=== PATIENT | female | born 1985 | race Hispanic/Latino ===

== ENCOUNTER 2016-10-12 13:15 | Emergency (ER) | payer MEDICAID ==
[2016-10-12 13:15] VITALS: BMI 32.2
[2016-10-12] MEDS ORDERED: Sodium Chloride 0.9% 1,000 ML IV ONE (15:37)
[2016-10-12] MEDS ORDERED: Belladonna-Phenobarbital PO STA (15:37)
[2016-10-12 15:49] LABS: RBC URINE 7 /hpf (0-3); URINE BACTERIA OCC (<OCC); URINE BILIRUBIN NEGATIVE (NEGATIVE); URINE COLOR Yellow (YELLOW); URINE GLUCOSE (UA) 3+ mg/dL (Normal); URINE KETONE 2+ mg/dL (NEGATIVE); URINE LEUKOCYTE ESTERASE NEG Leu/uL (Negative); URINE PROTEIN 2+ mg/dL (NEGATIVE); URINE UROBILINOGEN NORMAL mg/dL (0.2-1.0); WBC URINE 5 /hpf (0-5)
[2016-10-12 15:51] LABS: URINE BLOOD TRACE (NEGATIVE)
[2016-10-12 16:05] LABS: BASO # 0.1 K/uL (0.0-0.2); BASO % 0.4 % (0.0-2.0); EOS # 0.1 K/uL (0.0-0.7); EOS % 0.3 % (0.0-4.0); HEMATOCRIT 47.9 % (34.0-47.0); LYMPH # 1.9 K/uL (1.0-4.3); LYMPH % 10.7 % (20.0-40.0); MEAN CELL VOLUME 89.6 fL (81.0-99.0); MEAN CORPUSCULAR HEMOGLOBIN 30.1 pg (27.0-31.0); MEAN CORPUSCULAR HGB CONC 33.6 g/dL (33.0-37.0); MEAN PLATELET VOLUME 9.8 fL (7.2-11.7); MONO # 0.9 K/uL (0.0-0.8); MONO % 4.9 % (0.0-10.0); NRBC % 0.1 % (0.0-2.0); RED CELL DISTRIBUTION WIDTH 12.4 % (11.5-14.5); WHITE BLOOD COUNT 17.6 K/uL (4.8-10.8)
--- NOTE | 2016-10-12 16:06 | RAD ---
HISTORY: Cough COMPARISON: Chest x-ray performed 04/13/16 TECHNIQUE: Chest, one view. FINDINGS: Examination limited by habitus. LUNGS: No focal consolidation. Please note that chest x-ray has limited sensitivity for the detection of pulmonary masses. PLEURA: No significant pleural effusion identified. No definite pneumothorax . CARDIOVASCULAR: The cardiomediastinal silhouette appears within normal limits of size. OSSEOUS STRUCTURES: No acute osseous abnormality identified. VISUALIZED UPPER ABDOMEN: Unremarkable. OTHER FINDINGS: None. IMPRESSION: No focal consolidation, significant pleural effusion, or definite pneumothorax identified.
[2016-10-12 16:10] LABS: CHLORIDE 94 mmol/L (98-107); SODIUM 139 mmol/L (132-148)
[2016-10-12 16:11] LABS: POTASSIUM 3.8 mmol/L (3.6-5.2)
[2016-10-12 16:12] LABS: GFR AFRICAN-AMERICAN > 60
[2016-10-12 16:13] LABS: ALB/GLOB RATIO 1.4 (1.0-2.1); ALKALINE PHOSPHATASE 137 U/L (38-126); ALT/SGPT 39 U/L (9-52); AST/SGOT 25 U/L (14-36); BILIRUBIN,TOTAL 0.9 mg/dL (0.2-1.3); BLOOD UREA NITROGEN 9 mg/dL (7-17); CALCIUM 9.6 mg/dl (8.6-10.4); CARBON DIOXIDE 26 mmol/L (22-30); GLUCOSE,RANDOM 278 mg/dL (65-105); TOTAL PROTEIN 8.2 g/dL (6.3-8.3)
[2016-10-12 16:14] LABS: ALCOHOL SERUM < 10 mg/dl (0-10)
[2016-10-12] MEDS ORDERED: Sodium Chloride 0.9% 1,000 ML ONE (17:03)
[2016-10-12] MEDS ORDERED: Belladonna-Phenobarbital ONE (17:03)
--- NOTE | 2016-10-12 18:05 | C.PDOC ---
History Of Present Illness Pt developed flu-like symptoms after stopping her opiate pain pills. Time Seen by Provider: 10/12/16 15:22 Chief Complaint (Nursing): Flu-like Symptoms History Per: Patient Onset/Duration Of Symptoms: Days (2) Current Symptoms Are (Timing): Still Present Associated Symptoms: Cough, Myalgias, Nasal Congestion, Nausea, Vomiting, Diarrhea Severity: Moderate Additional History Per: Prior Records Past Medical History Reviewed: Historical Data, Nursing Documentation, Vital Signs Vital Signs: Last Vital Signs Temp 98.2 F 10/12/16 14:36 Pulse 110 H 10/12/16 14:36 Resp 20 10/12/16 14:36 BP 145/84 10/12/16 14:36 Pulse Ox 99 10/12/16 14:36 - Medical History PMH: Anxiety, Back Problems, Depression, Diabetes, Gastritis, Gastrointestinal Ulcer, Hiatal Hernia, HTN, Kidney Stones Surgical History: - [facility] Procedures INDIVID PSYCHOTHERAP NEC (06/23/14) INFLUENZA VACCINATION (07/23/14) INJECT/INFUSE NEC (07/29/13) NEBULIZER THERAPY (07/29/13) OTHER GROUP THERAPY (06/23/14) Family History: States: Unknown Family Hx - Social History Hx Tobacco Use: No Hx Alcohol Use: No (DENIED) Hx Substance Use: No (DENIED) - Immunization History Hx Tetanus Toxoid Vaccination: No Hx Influenza Vaccination: No Hx Pneumococcal Vaccination: No Review Of Systems Except As Marked, All Systems Reviewed And Found Negative. Constitutional: Positive for: Malaise Cardiovascular: Negative for: Chest Pain Respiratory: Positive for: Cough. Negative for: Shortness of Breath, Hemoptysis Gastrointestinal: Positive for: Nausea, Vomiting, Abdominal Pain, Diarrhea Genitourinary: Negative for: Dysuria Musculoskeletal: Negative for: Neck Pain Skin: Negative for: Rash Neurological: Negative for: Weakness, Numbness, Seizures, Altered Mental Status Psych: Negative for: Psychosis, Suicidal ideation Physical Exam - Physical Exam Appears: Non-toxic, No Acute Distress Skin: Normal Color, Warm, Dry, No Rash Head: Atraumatic, Normacephalic Eye(s): bilateral: PERRL, EOMI Oral Mucosa: Moist Neck: Normal ROM, Supple Cardiovascular: Rhythm Regular Respiratory: Normal Breath Sounds, No Accessory Muscle Use Gastrointestinal/Abdominal: Soft, No Tenderness Back: No CVA Tenderness Extremity: Normal ROM Neurological/Psych: Oriented x3, Normal Motor, Normal Sensation ED Course And Treatment - Laboratory Results Result Diagrams: 10/12/16 16:02 10/12/16 16:02 Urine POC: Negative O2 Sat by Pulse Oximetry: 99 Pulse Ox Interpretation: Normal - Radiology CXR: Viewed By Me, Read By Radiologist CXR Interpretation: Yes: No Acute Disease Reassessment Condition: Improved Progress - Interventions Interventions:: Observation, Intravenous fluid - Medications Administered Intravenous: Antiemetic, H-2 elia, NSAID - Data Reviewed Data Reviewed: Lab, Diagnostic imaging, Old records - Patient Status Patient status: Mostly improved - Continuity of Care Discussed patient case with:: Patient, ED Nurse - Patient Plan Patient Plan: Discharge, F/U with PCP Disposition Counseled Patient/Family Regarding: Studies Performed, Diagnosis, Need For Followup, Rx Given - Disposition Referrals: Wesley Peterson MD [Medical Doctor] - Disposition: HOME/ ROUTINE Disposition Time: 18:05 Condition: IMPROVED Additional Instructions: Drink plenty of fluids. Follow up with your doctor. Return to the ER if you develop fever, not tolerating fluids, worsening of symptoms or if have any other concerns. Prescriptions: Loperamide [Imodium] 2 mg PO QID PRN #12 cap PRN Reason: Diarrhea Metoclopramide [Reglan] 5 mg PO TID PRN #15 tab PRN Reason: Nausea/Vomiting Instructions: Opioid Withdrawal (ED) Print Language: [place] - Clinical Impression Clinical Impression: Opioid withdrawal
[2016-10-12 19:08] VITALS: BP 121/84; PULSE 99; RESP 18; TEMP 98.6; O2SAT 96
== END 2016-10-12 19:08 | disposition home or self-care (01) ==
LOC: C.ER 13:15
DX: F11.23 Opioid dependence with withdrawal (principal)
CPT/HCPCS: 71010; 80053; 80178; 80320; 80324; 80345; 80346; 80349; 80353; 80358; 80361; 81001; 83690; 83992; 84703; 85025; 96361; 96374; 96375; 99285; J1885; J2405; J7040

== ENCOUNTER 2016-12-13 15:32 | Emergency (ER) | payer MEDICAID ==
[2016-12-13 15:33] VITALS: BMI 32.2
[2016-12-13 15:51] VITALS: RESP 18; TEMP 97.9
--- NOTE | 2016-12-13 16:05 | C.PDOC ---
History Of Present Illness 31 y/o female pmhx diabetes, IVDA presents to the ED with complains of intermittent bilateral leg tingling for the past 6 months, worsening over the past week. Pt also reports coccygeal pain x3 days. Pt denies trauma, fever, chills, abdominal pain, vaginal bleeding or discharge or any other complaints. Time Seen by Provider: 12/13/16 15:57 Chief Complaint (Nursing): Back Pain History Per: Patient History/Exam Limitations: no limitations Onset/Duration Of Symptoms: Days Current Symptoms Are (Timing): Worse Severity: Moderate Associated Symptoms: None Recent travel outside of the [place]: No Past Medical History Reviewed: Historical Data, Nursing Documentation, Vital Signs Vital Signs: Last Vital Signs Temp 97.9 F 12/13/16 15:47 Pulse 72 12/13/16 17:56 Resp 18 12/13/16 17:56 BP 138/79 12/13/16 17:56 Pulse Ox 98 12/13/16 17:56 - Medical History PMH: Anxiety (drug induced), Back Problems, Depression (drug induced), Diabetes , Gastritis, Gastrointestinal Ulcer, Hiatal Hernia, HTN, Kidney Stones Surgical History: - [facility] Procedures INDIVID PSYCHOTHERAP NEC (06/23/14) INFLUENZA VACCINATION (07/23/14) INJECT/INFUSE NEC (07/29/13) NEBULIZER THERAPY (07/29/13) OTHER GROUP THERAPY (06/23/14) Family History: States: Unknown Family Hx - Social History Hx Tobacco Use: No Hx Alcohol Use: No (DENIED) Hx Substance Use: No (DENIED) - Immunization History Hx Tetanus Toxoid Vaccination: No Hx Influenza Vaccination: No Hx Pneumococcal Vaccination: No Review Of Systems Except As Marked, All Systems Reviewed And Found Negative. Constitutional: Negative for: Fever, Chills Gastrointestinal: Negative for: Abdominal Pain Genitourinary: Negative for: Vaginal Discharge, Vaginal Bleeding Musculoskeletal: Positive for: Other (bilateral leg tingling. coccygeal pain) Neurological: Negative for: Weakness Physical Exam - Physical Exam Appears: Non-toxic, No Acute Distress Skin: Warm, Dry, No Rash Head: Atraumatic, Normacephalic Neck: Normal, Normal ROM, Supple Chest: Symmetrical Cardiovascular: Rhythm Regular, No Murmur Respiratory: Normal Breath Sounds, No Rales, No Rhonchi, No Wheezing Gastrointestinal/Abdominal: Normal Exam, Soft, No Tenderness Back: No Straight Leg Raising, Other (tenderness to tip of coccyx, otherwise no vertebral tenderness) Extremity: Normal ROM Extremity: Bilateral: Atraumatic Pulses: Left Dorsalis Pedis: Normal, Right Dorsalis Pedis: Normal Neurological/Psych: Oriented x3, Normal Speech, Normal Motor, Normal Sensation Gait: Steady ED Course And Treatment O2 Sat by Pulse Oximetry: 97 (room air) Pulse Ox Interpretation: Normal Progress Note: On reevaluation, pt feeling better after given toradol. Medical Decision Making Medical Decision Making: pt feeling much better. will d/c home,. with pmd f/u Disposition Counseled Patient/Family Regarding: Diagnosis, Need For Followup, Rx Given - Disposition Disposition: HOME/ ROUTINE Disposition Time: 17:46 Condition: IMPROVED Additional Instructions: Follow up with your pmd in 1-2 days or in clinic. Take ibupforen for pain if needed. Return to ER for any worsening symptoms, increased pain or fgever. . Prescriptions: Ibuprofen [Motrin] 600 mg PO TID #30 tab Forms: General Discharge Instructions - Clinical Impression Clinical Impression: Low back pain - PA / [employer] / Resident Statement MD/DO has reviewed & agrees with the documentation as recorded. - Scribe Statement The provider has reviewed the documentation as recorded by the David Paris All medical record entries made by the Rodolfoibarminda were at my direction and personally dictated by me. I have reviewed the chart and agree that the record accurately reflects my personal performance of the history, physical exam, medical decision making, and the department course for this patient. I have also personally directed, reviewed, and agree with the discharge instructions and disposition.
[2016-12-13 17:20] LABS: RBC URINE 2 /hpf (0-3); URINE BACTERIA OCC (<OCC); URINE BILIRUBIN NEGATIVE (NEGATIVE); URINE BLOOD 1+ (NEGATIVE); URINE COLOR Yellow (YELLOW); URINE GLUCOSE (UA) NORMAL (Normal); URINE KETONE NEGATIVE (NEGATIVE); URINE LEUKOCYTE ESTERASE NEG Leu/uL (Negative); URINE PROTEIN 1+ mg/dL (NEGATIVE); WBC URINE 3 /hpf (0-5)
--- NOTE | 2016-12-13 17:39 | RAD ---
PROCEDURE: Radiographs of the Sacrum and Coccyx HISTORY: coccygeal tendernessm no trauma COMPARISON: None available. TECHNIQUE: Frontal and lateral views of the sacrum and coccyx FINDINGS: BONES: Sacrum and coccyx unremarkable. No fracture or focal lesion. SACROILIAC JOINTS: Unremarkable. OTHER FINDINGS: None. Multiple small brown bend elliptical shaped calcifications within the pelvis likely represent calcified pelvic phleboliths. The possibility of a urinary bladder calculus cannot be excluded based on this study. IMPRESSION: No definite evidence of acute displaced fracture no retropulsed fragments. . Consider followup additional studies such as CT scan or MRI if further evaluation is required See above discussion for additional incidental findings.
[2016-12-13 17:56] VITALS: BP 138/79; PULSE 72
[2016-12-13 19:24] VITALS: O2SAT 97
== END 2016-12-13 17:57 | disposition home or self-care (01) ==
LOC: C.ER 15:32
DX: M54.5 Low back pain (principal); E11.9 Type 2 diabetes mellitus without complications; I10 Essential (primary) hypertension
CPT/HCPCS: 72220; 81001; 96372; 99284; J1885

== ENCOUNTER 2016-12-16 23:23 | Inpatient (IN) | payer MEDICAID ==
[2016-12-16 23:23] VITALS: BMI 32.2
--- NOTE | 2016-12-17 00:26 | C.PDOC ---
History Of Present Illness Pt smoked some pcp and feels very angry and depressed. Denies suicidal ideation. Complains of occsional back pain. No f/c/n/v. No urinary symptoms Time Seen by Provider: 12/17/16 00:26 Chief Complaint (Nursing): Psychiatric Evaluation History Per: Patient History/Exam Limitations: no limitations Onset/Duration Of Symptoms: Days Current Symptoms Are (Timing): Still Present Suicide/Self Injury Attempted (Context): None Modifying Factor(s): Narcotics Severity: Moderate Pain Scale Rating Of: 4 Associated Symptoms: Depression Involuntary Hold By: None Recent travel outside of the [place]: No Additional History Per: Patient Past Medical History Reviewed: Historical Data, Nursing Documentation, Vital Signs Vital Signs: Last Vital Signs Temp 98.7 F 12/16/16 23:47 Pulse 130 H 12/16/16 23:47 Resp 22 12/16/16 23:47 BP 184/143 H 12/16/16 23:47 Pulse Ox 95 12/17/16 00:26 - Medical History PMH: Anxiety (drug induced), Back Problems, Depression (drug induced), Diabetes , Gastritis, Gastrointestinal Ulcer, Hiatal Hernia, HTN, Kidney Stones Denies: HIV, Seizures, Sexually Transmitted Disease Surgical History: - [facility] Procedures INDIVID PSYCHOTHERAP NEC (06/23/14) INFLUENZA VACCINATION (07/23/14) INJECT/INFUSE NEC (07/29/13) NEBULIZER THERAPY (07/29/13) OTHER GROUP THERAPY (06/23/14) Family History: States: No Known Family Hx - Social History Hx Tobacco Use: No Hx Alcohol Use: No Hx Substance Use: No - Immunization History Hx Tetanus Toxoid Vaccination: No Hx Influenza Vaccination: No Hx Pneumococcal Vaccination: No Review Of Systems Constitutional: Negative for: Fever, Chills Eyes: Negative for: Redness ENT: Negative for: Throat Pain Cardiovascular: Negative for: Chest Pain Respiratory: Negative for: Shortness of Breath Gastrointestinal: Negative for: Nausea, Vomiting Genitourinary: Negative for: Dysuria Musculoskeletal: Positive for: Back Pain Skin: Negative for: Rash, Lesions Neurological: Negative for: Weakness Psych: Positive for: Anxiety, Depression Physical Exam - Physical Exam Appears: Non-toxic Skin: Warm, Dry Head: Atraumatic Eye(s): bilateral: Normal Inspection Oral Mucosa: Moist Neck: Supple Chest: Symmetrical Cardiovascular: Rhythm Regular Respiratory: No Rales, No Rhonchi, No Wheezing Gastrointestinal/Abdominal: Soft, No Tenderness Back: No CVA Tenderness, No Decreased ROM Extremity: Normal ROM Extremity: Bilateral: Atraumatic Neurological/Psych: Oriented x3, Normal Speech, Normal Cognition Gait: Steady ED Course And Treatment - Laboratory Results Result Diagrams: 12/17/16 00:39 12/17/16 00:39 O2 Sat by Pulse Oximetry: [address].: Aguila Ashraf Comment: accepted the pt on his service and took over the care at 3 AM Doctor Will See Patient In The: Hospital Counseled Patient/Family Regarding: Studies Performed, Diagnosis - Disposition Disposition: HOSPITALIZED Disposition Time: 00:26 Condition: FAIR - Clinical Impression Clinical Impression: Depression, Substance abuse Decision To Admit - Pt Status Changed To: Hospital Disposition Of: Inpatient - Admit Certification Admit to Inpatient:: After my assessment, the patient will require hospitalization for at least two midnights. This is because of the severity of symptoms shown, intensity of services needed, and/or the medical risk in this patient being treated as an outpatient. - InPatient: Physician Admission Certification: I certify that this patient requires 2 or more midnights of care for the following reason:: After my assessment, the patient will require hospitalization for at least two midnights. This is because of the severity of symptoms shown, intensity of services needed, and/or the medical risk in this patient being treated as an outpatient. - . Bed Request Type: Psychiatry Admitting Physician: Aguila Ashraf Patient Diagnosis: Depression, Substance abuse
[2016-12-17 00:41] LABS: BASO # 0.1 K/uL (0.0-0.2); BASO % 0.6 % (0.0-2.0); EOS # 0.2 K/uL (0.0-0.7); EOS % 1.5 % (0.0-4.0); HEMATOCRIT 42.1 % (34.0-47.0); LYMPH # 2.8 K/uL (1.0-4.3); MEAN CELL VOLUME 91.3 fL (81.0-99.0); MEAN CORPUSCULAR HEMOGLOBIN 30.4 pg (27.0-31.0); MEAN CORPUSCULAR HGB CONC 33.3 g/dL (33.0-37.0); MEAN PLATELET VOLUME 10.2 fL (7.2-11.7); MONO # 0.7 K/uL (0.0-0.8); MONO % 5.9 % (0.0-10.0); WHITE BLOOD COUNT 11.4 K/uL (4.8-10.8)
[2016-12-17 00:49] LABS: CHLORIDE 101 mmol/L (98-107)
[2016-12-17 00:51] LABS: SODIUM 138 mmol/L (132-148)
[2016-12-17 00:52] LABS: RBC URINE 8 /hpf (0-3); URINE BACTERIA MANY (<OCC); URINE BILIRUBIN NEGATIVE (NEGATIVE); URINE BLOOD 1+ (NEGATIVE); URINE COLOR Yellow (YELLOW); URINE GLUCOSE (UA) 3+ mg/dL (Normal); URINE KETONE NEGATIVE (NEGATIVE); URINE LEUKOCYTE ESTERASE NEG Leu/uL (Negative); URINE PROTEIN 1+ mg/dL (NEGATIVE); URINE UROBILINOGEN NORMAL mg/dL (0.2-1.0); WBC URINE 11 /hpf (0-5)
[2016-12-17 00:53] LABS: ALB/GLOB RATIO 1.5 (1.0-2.1); ALKALINE PHOSPHATASE 119 U/L (38-126); ALT/SGPT 21 U/L (9-52); AST/SGOT 16 U/L (14-36); BILIRUBIN,TOTAL 0.5 mg/dL (0.2-1.3); BLOOD UREA NITROGEN 11 mg/dL (7-17); CARBON DIOXIDE 26 mmol/L (22-30); GFR AFRICAN-AMERICAN > 60; TOTAL PROTEIN 7.4 g/dL (6.3-8.3)
[2016-12-17 00:54] LABS: ALCOHOL SERUM < 10 mg/dl (0-10); CALCIUM 9.3 mg/dl (8.6-10.4); GLUCOSE,RANDOM 272 mg/dL (65-105)
[2016-12-17] MEDS ORDERED: Pneumococcal 23-Valent Vaccine IM ONE (05:08)
[2016-12-17] MEDS: Pantoprazole 20 mg EC Tab PO SCH (10:29)
[2016-12-17] MEDS: (Lantus) Insulin Glargine, Recombinant SC SCH (10:30)
--- NOTE | 2016-12-17 10:58 | PCM.PSYCH ---
Initial Psychiatric Evaluation - Initial Psychiatric Evaluation Type of Admission: Voluntary Legal Status: Capacity Chief Complaint (in patient's own words): 'I was feeling depressed and suicidal' History of Present Illness and Precipitating Events: Patient is a 31 years old CF, is currently unemployed who lives with significant other , with a long history of bipolar disorder, PCP abuse and opioid abuse came to the ED with depressed and agitated mood and suicidal ideation. patient reports a long history of abusing PCP and opioids. Patient reports that she was discharged from [facility] last year. But she stopped taking her meds and replased on PCP. As per her, yesterday she had a verbal altercation with her family and she started abusing PCP, became increasingly irritable and agitated and developed suicidal ideation, so came to the hospital to get help. Patient reports of depressed, irritable and agitated mood, reports poor sleep and poor appetite. Pt also reports at times racing of thoughts, and flight of ideas. She reports being paranoid sometimes but denies any auditory hallucinations or visual hallucinations. Past psychiatric History Patient reports history of multiple inpatient psychiatric hospitalizations but denies any follow-up with any psychiatrist. She reports history of more than 2 suicidal attempts. Last attempt was last year when she was admitted on medical floor. When patient overdosed on her blood pressure medications and insulin. however she denies any homicidal ideation. She reports history of paranoia due to drug use but denies any hallucinations in the past PMH h/o HTN, DM, Herniated disc, GERD Current Medications: Active Medications Generic Name Dose Route Start Last Admin Trade Name Freq PRN Reason Stop Dose Admin Acetaminophen 650 mg 12/17/16 08:34 Tylenol 325mg Tab PO Q6 PRN Fever >100.4 F Benztropine Mesylate 2 mg 12/17/16 08:34 Cogentin PO Q6 PRN Extra Pyramidal Symptoms Diphenhydramine HCl 50 mg 12/17/16 08:34 Benadryl PO Q6 PRN Extra Pyramidal Symptoms Ibuprofen 600 mg 12/17/16 05:11 Motrin Tab PO Q6 PRN MODERATE PAIN Insulin Glargine 30 unit 12/17/16 10:00 12/17/16 10:30 Lantus SC 1 u DAILY NIC Administration Lisinopril 20 mg 12/17/16 10:00 12/17/16 10:29 Zestril PO 20 mg DAILY NIC Administration Loperamide HCl 2 mg 12/17/16 08:34 Imodium PO Q8 PRN Diarrhea Ondansetron HCl 4 mg 12/17/16 08:34 Zofran Tab PO Q8H PRN Nausea/Vomiting Pantoprazole Sodium 20 mg 12/17/16 10:00 12/17/16 10:29 Protonix Ec Tab PO 20 mg DAILY NIC Administration Trazodone HCl 50 mg 12/17/16 22:00 Desyrel PO HS NIC Past Psychiatric History - Past Psychiatric History Previous Treatment History: Inpatient Pertinent Medical Hx (Current Medical&Sleep Prob, Allergies): Allergies Allergy/AdvReac Type Severity Reaction Status Date / Time quetiapine [From Seroquel] Allergy Verified 12/13/16 17:30 ciprofloxacin [From Cipro] AdvReac Verified 12/13/16 17:30 haloperidol [From Haldol] AdvReac FATIGUE Verified 12/13/16 17:30 haloperidol lactate AdvReac FATIGUE Verified 12/13/16 17:30 [From Haldol] ziprasidone HCl [From Geodon] AdvReac FATIGUE Verified 12/13/16 17:30 ziprasidone mesylate AdvReac FATIGUE Verified 12/13/16 17:30 [From Geodon] Lisinopril [Zestril] 20 mg PO DAILY 01/17/16 Insulin Glargine, Recombina [Lantus] 30 unit SQ DAILY 02/25/16 Insulin Lispro [Humalog] 1 units SQ PRN PRN 02/25/16 Ibuprofen [Motrin] 600 mg PO TID #30 tab 12/13/16 Omeprazole 20 mg PO PRN PRN 12/16/16 Review of Systems - Review of Systems All systems: reviewed and no additional remarkable complaints except - Psychiatric Psychiatric: Anxiety, Irritability, Mood Swings, Suicidal Ideation Mental Status Examination - Personal Presentation Personal Presentation: Looks stated age - Affect Affect: Constricted - Motor Activity Motor Activity: Calm - Reliability in Providing Information Reliability in Providing Information: Fair - Speech Speech: Organized - Mood Mood: Depressed, Anxious - Formal Thought Process Formal Thought Process: Paranoia - Hallucinations/Delusions Delusions: Persecution - Obsessions/Compulsions Obsessions: No Compulsions: No - Cognitive Functions Orientation: Person, Place, Situation, Time Sensorium: Alert Attention/Concentration: Attentive Abstract Thinking: [place] Estimate of Intelligence: Below average Judgement: Imparied, as evidence by: Poor judgement, Imparied, as evidence by: Lack of insight into illness - Risk Risk: Suicidal, Diminished functioning - Strength & Assets Inventory Strength & Assets Inventory: Cooperative DSM 5 DX - DSM 5 DSM 5 Diagnosis: 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 Opiate use disorder moderate - Recommended/Plan of Treatment Treatment Recommendations and Plan of Treatment: Bipolar disorder mixed severe with psychotic features CBT Psychoeducation Supportive therapy, group therapy, individual therapy Zoloft 50 mg daily Neurontin 100 mg by mouth 3 times a day Trazodone 50 mg by mouth daily at bedtime PCP use disorder severe CBT Psychoeducation Supportive therapy, individual therapy Use ME for abstinence Opiate use disorder moderate CBT Psychoeducation Supportive therapy, individual therapy Use ME for abstinence HTN Monitor signs and symptoms DM Monitor signs symptoms Continue prescribed medications Back pain Monitor signs symptoms Continue prescribed medications - Smoking Cessation Smoking Cessation Initiated: No
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
[2016-12-18 08:32] LABS: BASO # 0.1 K/uL (0.0-0.2); BASO % 0.6 % (0.0-2.0); EOS # 0.2 K/uL (0.0-0.7); EOS % 1.7 % (0.0-4.0); HEMATOCRIT 40.9 % (34.0-47.0); LYMPH # 3.3 K/uL (1.0-4.3); LYMPH % 32.6 % (20.0-40.0); MEAN CELL VOLUME 90.4 fL (81.0-99.0); MEAN CORPUSCULAR HEMOGLOBIN 30.4 pg (27.0-31.0); MEAN CORPUSCULAR HGB CONC 33.6 g/dL (33.0-37.0); MEAN PLATELET VOLUME 10.5 fL (7.2-11.7); MONO # 0.7 K/uL (0.0-0.8); MONO % 7.3 % (0.0-10.0); RED CELL DISTRIBUTION WIDTH 13.2 % (11.5-14.5); WHITE BLOOD COUNT 10.1 K/uL (4.8-10.8)
[2016-12-18 08:50] LABS: CHLORIDE 100 mmol/L (98-107); SODIUM 138 mmol/L (132-148)
[2016-12-18 08:52] LABS: BILIRUBIN,TOTAL 0.6 mg/dL (0.2-1.3); GFR AFRICAN-AMERICAN > 60
[2016-12-18 08:53] LABS: ALB/GLOB RATIO 1.5 (1.0-2.1); ALKALINE PHOSPHATASE 113 U/L (38-126); ALT/SGPT 25 U/L (9-52); AST/SGOT 17 U/L (14-36); BLOOD UREA NITROGEN 12 mg/dL (7-17); CALCIUM 8.9 mg/dl (8.6-10.4); CARBON DIOXIDE 28 mmol/L (22-30); GLUCOSE,RANDOM 163 mg/dL (65-105); MAGNESIUM 1.7 mg/dL (1.6-2.3); PHOSPHOROUS 3.5 mg/dL (2.5-4.5); TOTAL PROTEIN 6.8 g/dL (6.3-8.3)
--- NOTE | 2016-12-18 09:47 | CP.PCM.PN ---
Subjective - Date & Time of Evaluation Date of Evaluation: 12/18/16 Time of Evaluation: 09:01 - Subjective Subjective: PGY 1 Medicine Note- Dr. Schneider's service Patient seen and examined in no acute distress. Patient still complains of aches and pains. Otherwise no other significant events. She denies, fevers, chills, headaches, nausea, vomiting, diarrhea, chest pain or palpitations at this time. Objective - Vital Signs/Intake and Output Vital Signs (last 24 hours): Temp Pulse Resp BP Pulse Ox 97.5 F L 71 20 105/63 98 12/18/16 07:08 12/18/16 07:08 12/18/16 07:08 12/18/16 07:08 12/17/16 03:16 - Medications Medications: Current Medications Acetaminophen (Tylenol 325mg Tab) 650 mg PO Q6 PRN PRN Reason: Fever >100.4 F Benztropine Mesylate (Cogentin) 2 mg PO Q6 PRN PRN Reason: Extra Pyramidal Symptoms Diphenhydramine HCl (Benadryl) 50 mg PO Q6 PRN PRN Reason: Extra Pyramidal Symptoms Gabapentin (Neurontin) 100 mg PO TID [facility] Last Admin: 12/17/16 17:31 Dose: Not Given Ibuprofen (Motrin Tab) 600 mg PO Q6 PRN PRN Reason: MODERATE PAIN Last Admin: 12/17/16 15:58 Dose: 600 mg Insulin Glargine (Lantus) 30 unit SC DAILY [facility] Last Admin: 12/17/16 10:30 Dose: 1 u Lisinopril (Zestril) 20 mg PO DAILY [facility] Last Admin: 12/17/16 10:29 Dose: 20 mg Loperamide HCl (Imodium) 2 mg PO Q8 PRN PRN Reason: Diarrhea Ondansetron HCl (Zofran Tab) 4 mg PO Q8H PRN PRN Reason: Nausea/Vomiting Pantoprazole Sodium (Protonix Ec Tab) 20 mg PO DAILY [facility] Last Admin: 12/17/16 10:29 Dose: 20 mg Sertraline HCl (Zoloft) 50 mg PO DAILY [facility] Trazodone HCl (Desyrel) 50 mg PO HS [facility] Last Admin: 12/17/16 22:08 Dose: Not Given - Labs Labs: 12/18/16 08:24 12/18/16 08:24 - Constitutional Appears: Non-toxic, No Acute Distress - Head Exam Head Exam: ATRAUMATIC, NORMAL INSPECTION, NORMOCEPHALIC - Eye Exam Eye Exam: EOMI, Normal appearance, PERRL Pupil Exam: NORMAL ACCOMODATION - ENT Exam ENT Exam: Mucous Membranes Moist - Neck Exam Neck Exam: Full ROM - Respiratory Exam Respiratory Exam: NORMAL BREATHING PATTERN. absent: Wheezes - Cardiovascular Exam Cardiovascular Exam: +S1, +S2 - GI/Abdominal Exam GI & Abdominal Exam: Soft, Normal Bowel Sounds - Extremities Exam Extremities Exam: Full ROM, Normal Capillary Refill, Normal Inspection. absent : Pedal Edema Additional comments: arthralgias - Back Exam Back Exam: Full ROM, NORMAL INSPECTION, tenderness, vertebral tenderness Additional comments: pilonidal cyst in sacral gluteal cleft - Neurological Exam Neurological Exam: Awake, CN II-XII Intact, Oriented x3 - Psychiatric Exam Psychiatric exam: Normal Affect, Normal Mood - Skin Skin Exam: Dry, Normal Color, Warm Assessment and Plan (1) Diabetes mellitus Status: Acute (2) Arthralgia Status: Acute (3) Substance abuse Status: Acute (4) Suicidal ideations Status: Acute (5) Prophylactic measure Status: Acute - Assessment and Plan (Free Text) Assessment: (1) Diabetes mellitus Assessment and Plan: Hx of DM Glargine 30 units SC daily started today- Will adjust as needed Accuchecks ACHS Hgb A1c 10.1, Microalbumin 38.5 ( elevated), morning labs Status: Acute (2) Arthralgia Assessment and Plan: CPK level WNL Patient encouraged to drink at least 8- eight ounce glasses of water a day Tylenol on board for now. Patient encouraged to ask for pain medications Patient recommended to follow up with Neurologist outpatient. Will monitor Status: Acute (3) Substance abuse Assessment and Plan: PCP use, Opiate use Patient counseled on cessation Management per Psych Status: Acute Priority: High (4) Suicidal ideations Assessment and Plan: Patient counseled Management per Psych Status: Acute (5) Prophylactic measure Assessment and Plan: Ambulation encouraged Status: Acute
[2016-12-18] MEDS: Pantoprazole 20 mg EC Tab PO SCH (10:10)
[2016-12-18] MEDS: (Lantus) Insulin Glargine, Recombinant SC SCH (10:16)
--- NOTE | 2016-12-18 11:42 | PCM.PYCHPN ---
Psychiatric Progress Note - Psychiatric Progress Note Patient seen today, length of contact: 16 min Patient Chief Complaint: 'I was feeling depressed and suicidal' Problems Identified/Issues Discussed: Patient seen and evaluated, chart reviewed and discussed with the nurse. Patient reports depressed mood and at times feelings of hopelessness and helplessness. As per the staff patient started coming out of her room. She still reports irritability and agitation. However she reports improvement in her paranoia. She still reports racing of thoughts and poor concentration. She is taking medications and denies any side effects. Supportive therapy and psychoeducation were given. Medication Change: Yes (start lithium) Medical Record Reviewed: Yes Mental Status Examination - Cognitive Function Orientation: Person, Place, Situation, Time Memory: Intact Attention: WNL Concentration: Poor Association: WNL Fund of Knowledge: Poor - Mood Mood: Depressed, Anxious - Affect Affect: Constricted - Speech Speech: Soft - Formal Thought Process Formal Thought Process: Paranoia - Suicidal Ideation Suicidal Ideation: No - Homicidal Ideation Homicidal Ideation: No Goal/Treatment Plan - Goal/Treatment Plan Need for Continued Stay: Discharge may exacerbated symptoms, Severe functional impairment Progress Toward Problem(s) and Goals/Treatment Plan: Bipolar disorder mixed severe with psychotic features CBT Psychoeducation Supportive therapy, group therapy, individual therapy lithium 300 mg by mouth 3 times a day Zoloft 50 mg daily Neurontin 100 mg by mouth 3 times a day Trazodone 50 mg by mouth daily at bedtime PCP use disorder severe CBT Psychoeducation Supportive therapy, individual therapy Use [place] for abstinence Opiate use disorder moderate CBT Psychoeducation Supportive therapy, individual therapy Use [place] for abstinence HTN Monitor signs and symptoms DM Monitor signs symptoms Continue prescribed medications Back pain Monitor signs symptoms Continue prescribed medications - Smoking Cessation Smoking Cessation Initiated: No
--- NOTE | 2016-12-19 09:51 | PCM.PYCHPN ---
Psychiatric Progress Note - Psychiatric Progress Note Patient seen today, length of contact: 16 min Patient Chief Complaint: 'I was feeling depressed and suicidal' Problems Identified/Issues Discussed: Patient seen and evaluated, chart reviewed and discussed with the nurse. Patient reports depressed mood and at times feelings of hopelessness and helplessness. As per the staff patient started coming out of her room. She still reports irritability and agitation. However she reports improvement in her paranoia. She still reports racing of thoughts and poor concentration. She is taking medications and denies any side effects. Supportive therapy and psychoeducation were given. Medication Change: Yes (increase zoloft, increase neurontin) Medical Record Reviewed: Yes Mental Status Examination - Cognitive Function Orientation: Person, Place, Situation, Time Memory: Intact Attention: WNL Concentration: Poor Association: WNL Fund of Knowledge: Poor - Mood Mood: Depressed, Anxious - Affect Affect: Constricted - Speech Speech: Soft - Formal Thought Process Formal Thought Process: Paranoia - Suicidal Ideation Suicidal Ideation: No - Homicidal Ideation Homicidal Ideation: No Goal/Treatment Plan - Goal/Treatment Plan Need for Continued Stay: Discharge may exacerbated symptoms, Severe functional impairment Progress Toward Problem(s) and Goals/Treatment Plan: Bipolar disorder mixed severe with psychotic features CBT Psychoeducation Supportive therapy, group therapy, individual therapy lithium 300 mg by mouth 3 times a day Zoloft 50 mg daily Neurontin 100 mg by mouth 3 times a day Trazodone 50 mg by mouth daily at bedtime PCP use disorder severe CBT Psychoeducation Supportive therapy, individual therapy Use [place] for abstinence Opiate use disorder moderate CBT Psychoeducation Supportive therapy, individual therapy Use [place] for abstinence HTN Monitor signs and symptoms DM Monitor signs symptoms Continue prescribed medications Back pain Monitor signs symptoms Continue prescribed medications
[2016-12-19] MEDS: (Lantus) Insulin Glargine, Recombinant SC SCH (10:33)
[2016-12-19] MEDS: Pantoprazole 20 mg EC Tab PO SCH (10:39)
--- NOTE | 2016-12-19 18:18 | CP.PCM.PN ---
Addendum entered and electronically signed by Kevin Wells DO 12/19/16 18: 25: Pt also on Keflex 500 mg po q12h for UTI: U/A positive for many bacteria, WBCs, blood Original Note: <Kevin Wells - Last Filed: 12/19/16 18:15> Subjective - Date & Time of Evaluation Date of Evaluation: 12/19/16 Time of Evaluation: 07:51 - Subjective Subjective: Pt seen and examined. Pt reports that she is feeling better today. Pt complains of upper neck pain and paraesthesias down her right arm. Pt denies fever, chills , chest pain, shortness of breath, nausea, and vomiting. Objective - Vital Signs/Intake and Output Vital Signs (last 24 hours): Temp Pulse Resp BP Pulse Ox 97.9 F 109 H 18 141/83 95 12/19/16 07:16 12/19/16 16:38 12/19/16 07:16 12/19/16 16:38 12/19/16 07:16 - Medications Medications: Current Medications Acetaminophen (Tylenol 325mg Tab) 650 mg PO Q6 PRN PRN Reason: Fever >100.4 F Benztropine Mesylate (Cogentin) 2 mg PO Q6 PRN PRN Reason: Extra Pyramidal Symptoms Cephalexin Monohydrate (Keflex) 500 mg PO Q12H [facility] Last Admin: 12/19/16 17:46 Dose: 500 mg Diphenhydramine HCl (Benadryl) 50 mg PO Q6 PRN PRN Reason: Extra Pyramidal Symptoms Last Admin: 12/18/16 17:27 Dose: 50 mg Gabapentin (Neurontin) 300 mg PO TID [facility] Last Admin: 12/19/16 17:46 Dose: 300 mg Ibuprofen (Motrin Tab) 600 mg PO Q6 PRN PRN Reason: MODERATE PAIN Last Admin: 12/19/16 10:48 Dose: 600 mg Insulin Glargine (Lantus) 30 unit SC DAILY [facility] Last Admin: 12/19/16 10:33 Dose: 30 units Insulin Human Regular (Novolin R) 0 unit SC ACHS [facility] PRN Reason: Protocol Lisinopril (Zestril) 20 mg PO DAILY [facility] Last Admin: 12/19/16 10:39 Dose: 20 mg [place] Carbonate ([place] Carbonate 300mg) 300 mg PO TID [facility] Last Admin: 12/19/16 17:47 Dose: Not Given Loperamide HCl (Imodium) 2 mg PO Q8 PRN PRN Reason: Diarrhea Lorazepam (Ativan) 1 mg PO Q12 PRN PRN Reason: Agitation Last Admin: 12/19/16 16:09 Dose: 1 mg Ondansetron HCl (Zofran Tab) 4 mg PO Q8H PRN PRN Reason: Nausea/Vomiting Pantoprazole Sodium (Protonix Ec Tab) 20 mg PO DAILY [facility] Last Admin: 12/19/16 10:39 Dose: 20 mg Sertraline HCl (Zoloft) 100 mg PO DAILY [facility] Trazodone HCl (Desyrel) 50 mg PO HS [facility] Last Admin: 12/18/16 21:17 Dose: 50 mg - Labs Labs: 12/18/16 08:24 12/18/16 08:24 - Constitutional Appears: No Acute Distress - Head Exam Head Exam: ATRAUMATIC, NORMOCEPHALIC - Eye Exam Eye Exam: EOMI, PERRL - ENT Exam ENT Exam: Mucous Membranes Moist. absent: Mucous Membranes Dry - Neck Exam Neck Exam: Full ROM. absent: Lymphadenopathy - Respiratory Exam Respiratory Exam: Clear to Ausculation Bilateral. absent: Rales, Rhonchi, Wheezes - Cardiovascular Exam Cardiovascular Exam: +S1, +S2. absent: Gallop, Rubs - GI/Abdominal Exam GI & Abdominal Exam: Soft. absent: Tenderness - Extremities Exam Extremities Exam: Full ROM. absent: Pedal Edema - Back Exam Back Exam: vertebral tenderness - Neurological Exam Neurological Exam: Alert, Awake, Oriented x3 - Psychiatric Exam Psychiatric exam: Normal Mood - Skin Skin Exam: Normal Color, Warm Assessment and Plan - Assessment and Plan (Free Text) Assessment: Diabetes mellitus Lantus increased to 35 units sc qd Regular insulin sliding scale Accuchecks ACHS Hgb A1c 10.1 Microalbumin 38.5 Status: Acute HTN: Lisinopril 20 mg po qd Continue to monitor BP Cervical Spine pain/paresthesias: Assessment and Plan: MRI of cervical spine pending Patient encouraged to drink at least 8- eight ounce glasses of water a day Tylenol on board for now. Patient encouraged to ask for pain medications Patient recommended to follow up with Neurologist outpatient. Will monitor Status: Acute Substance abuse Assessment and Plan: PCP use, Opiate use Patient counseled on cessation Management per Psych Status: Acute Priority: High Suicidal ideation Assessment and Plan: Patient counseled Management per Psych Status: Acute Prophylactic measures Assessment and Plan: Ambulation encouraged Status: Acute <Johnny Velazco Jaycee - Last Filed: 12/19/16 21:05> Objective - Vital Signs/Intake and Output Vital Signs (last 24 hours): Temp Pulse Resp BP Pulse Ox 97.9 F 109 H 18 141/83 95 12/19/16 07:16 12/19/16 16:38 12/19/16 07:16 12/19/16 16:38 12/19/16 07:16 - Medications Medications: Current Medications Acetaminophen (Tylenol 325mg Tab) 650 mg PO Q6 PRN PRN Reason: Fever >100.4 F Benztropine Mesylate (Cogentin) 2 mg PO Q6 PRN PRN Reason: Extra Pyramidal Symptoms Cephalexin Monohydrate (Keflex) 500 mg PO Q12H [facility] Last Admin: 12/19/16 17:46 Dose: 500 mg Diphenhydramine HCl (Benadryl) 50 mg PO Q6 PRN PRN Reason: Extra Pyramidal Symptoms Last Admin: 12/18/16 17:27 Dose: 50 mg Gabapentin (Neurontin) 300 mg PO TID [facility] Last Admin: 12/19/16 17:46 Dose: 300 mg Ibuprofen (Motrin Tab) 600 mg PO Q6 PRN PRN Reason: MODERATE PAIN Last Admin: 12/19/16 10:48 Dose: 600 mg Insulin Glargine (Lantus) 35 unit SC DAILY [facility] Insulin Glargine (Lantus) 10 unit SC STAT STA Stop: 12/19/16 20:58 Insulin Human Regular (Novolin R) 0 unit SC ACHS [facility] PRN Reason: Protocol Lisinopril (Zestril) 20 mg PO DAILY [facility] Last Admin: 12/19/16 10:39 Dose: 20 mg [place] Carbonate ([place] Carbonate 300mg) 300 mg PO TID [facility] Last Admin: 12/19/16 17:47 Dose: Not Given Loperamide HCl (Imodium) 2 mg PO Q8 PRN PRN Reason: Diarrhea Lorazepam (Ativan) 1 mg PO Q12 PRN PRN Reason: Agitation Last Admin: 12/19/16 16:09 Dose: 1 mg Ondansetron HCl (Zofran Tab) 4 mg PO Q8H PRN PRN Reason: Nausea/Vomiting Pantoprazole Sodium (Protonix Ec Tab) 20 mg PO DAILY [facility] Last Admin: 12/19/16 10:39 Dose: 20 mg Sertraline HCl (Zoloft) 100 mg PO DAILY [facility] Trazodone HCl (Desyrel) 50 mg PO HS [facility] Last Admin: 12/18/16 21:17 Dose: 50 mg - Labs Labs: 12/18/16 08:24 12/18/16 08:24 Attending/Attestation - Attestation I have personally seen and examined this patient.: Yes I have fully participated in the care of the patient.: Yes I have reviewed all pertinent clinical information, including history, physical exam and plan: Yes Notes (Text): 12/19/16 21:00 I have seen and examined this patient and agree with the assessment and plan outlined above. #. Diabetes Mellitus with hyperglycemia - Increase AM Lantus to 35units - Add single dose lantus 10units at PM - Evaluate Blood glucose ACHS and Adjust Lantus after 4 days. Johnny Velazco MD
[2016-12-19] MEDS ORDERED: (Lantus) Insulin Glargine, Recombinant SC STA (20:57)
[2016-12-19] MEDS: (Novolin R) Insulin Human Regular 100 units/ml vial SC SCH (21:36)
[2016-12-20 07:41] VITALS: BP 109/76; PULSE 111; RESP 20; TEMP 97.8; O2SAT 99
[2016-12-20] MEDS ORDERED: (Lantus) Insulin Glargine, Recombinant SC SCH (10:00)
--- NOTE | 2016-12-20 12:21 | PCM.PYCHDC ---
Mental Status Examination - Mental Status Examination Orientation: Person, Place, Situation, Time Memory: Intact Mood: Neutral Affect: Constricted Speech: Soft Attention: WNL Concentration: WNL Association: WNL Fund of Knowledge: WNL Formal Thought Process: No Impairment Description of patient's judgement and insight: good, fair Psychotic Thoughts and Behaviors: denies any AVH Suicidal Ideation: No Current Homicidal Ideation?: No Discharge Summary - Discharge Note Reason for Hospitalization: Patient is a 31 years old CF, is currently unemployed who lives with significant other , with a long history of bipolar disorder, PCP abuse and opioid abuse came to the ED with depressed and agitated mood and suicidal ideation. patient reports a long history of abusing PCP and opioids. Patient reports that she was discharged from [facility] last year. But she stopped taking her meds and replased on PCP. As per her, yesterday she had a verbal altercation with her family and she started abusing PCP, became increasingly irritable and agitated and developed suicidal ideation, so came to the hospital to get help. Patient reports of depressed, irritable and agitated mood, reports poor sleep and poor appetite. Pt also reports at times racing of thoughts, and flight of ideas. She reports being paranoid sometimes but denies any auditory hallucinations or visual hallucinations. Past psychiatric History Patient reports history of multiple inpatient psychiatric hospitalizations but denies any follow-up with any psychiatrist. She reports history of more than 2 suicidal attempts. Last attempt was last year when she was admitted on medical floor. When patient overdosed on her blood pressure medications and insulin. however she denies any homicidal ideation. She reports history of paranoia due to drug use but denies any hallucinations in the past Laboratory Data: Abnormal Lab Results 12/19/16 12/19/16 12/19/16 16:23 20:40 21:29 POC Glucose (mg/dL) 268 H 347 H 321 H 12/20/16 07:43 POC Glucose (mg/dL) 220 H Consultations:: List each consultation separately and include: 1. Reason for request. 2. Findings. 3. Follow-up Summary of Hospital Course include:: 1. Description of specific treatment plan utilized for patients during their course of treatmen. 2. Summarize the time- course for resolution of acute symptoms and/or regressed behaviors. 3. Describe issues identified and worked on during hospitalization. 4. Describe medication utilized. 5. Describe medical problems identified and treated. 6. Reassessment of suicide risk Summary of Hospital Course: During the course of her stay, patient (pt) started progressively improving and she no longer remained anxious and irritable. She started attending groups and meetings and started socializing. She denied any feelings of hopelessness, helplessness, and worthlessness, denied any problem with the sleep or appetite, and denied suicidal ideation or homicidal ideation. Pt denied any auditory or visual hallucinations. However, she remained med seeking throughout her stay in the hospital. At times she was found yelling and cursing at the staff for not giving her Ativan. Patient tolerated the medications very well and denied any side effects. - Final Diagnosis (DSM 5) Condition upon Discharge: FAIR DSM 5: 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 Opiate use disorder moderate Disposition: HOME/ ROUTINE Follow-up Treatment Plan: Education: Pt was educated and counseled about the risks and benefits of taking and not taking medications. Pt was educated and counseled about the risks of drinking and abusing drugs. Pt was educated and counseled to go to the ER or call 911 if pt develop suicidal ideation or homicidal ideation, worsening of symptoms or severe side effects of the meds. Prescriptions/Medication Reconciliation: Gabapentin [Neurontin] 300 mg PO TID 14 Days hydrOXYzine HCl [Atarax] 25 mg PO BID 14 Days Sertraline [Zoloft] 50 mg PO DAILY #14 tab traZODone [Desyrel] 100 mg PO HS #14 tab - Smoking Cessation Smoking Cessation Medication prescribed: No - Antipsychotic Medications Pt discharged on 2 or more routine antipsychotic medications: No
[2016-12-20] MEDS: (Novolin R) Insulin Human Regular 100 units/ml vial SC SCH (13:48)
== END 2016-12-19 02:30 | disposition home or self-care (01) | DRG 430 ==
LOC: C.ER 23:23 → C.5E 12-17 03:02
PROVIDERS: ADMIT Psychiatry & Neurology Psychiatry; ATTEND Psychiatry & Neurology Psychiatry
PROC: GZHZZZZ Group Psychotherapy (ICD-10-PCS; principal; 2016-12-17)
PROC: HZ52ZZZ Individual Psychotherapy for Substance Abuse Treatment, Cognitive-Behavioral (ICD-10-PCS; 2016-12-17)
PROC: HZ59ZZZ Individual Psychotherapy for Substance Abuse Treatment, Supportive (ICD-10-PCS; 2016-12-17)
PROC: HZ56ZZZ Individual Psychotherapy for Substance Abuse Treatment, Psychoeducation (ICD-10-PCS; 2016-12-17)
DX: F31.64 Bipolar disorder, current episode mixed, severe, with psychotic features (principal); E11.65 Type 2 diabetes mellitus with hyperglycemia; R45.851 Suicidal ideations; F16.10 Hallucinogen abuse, uncomplicated; F11.10 Opioid abuse, uncomplicated; F19.980 Other psychoactive substance use, unspecified with psychoactive substance-induced anxiety disorder; I10 Essential (primary) hypertension; Z79.4 Long term (current) use of insulin; K21.9 Gastro-esophageal reflux disease without esophagitis; M51.26 Other intervertebral disc displacement, lumbar region; F17.210 Nicotine dependence, cigarettes, uncomplicated

== ENCOUNTER 2017-04-11 19:30 | Emergency (ER) | payer MEDICAID ==
[2017-04-11 19:31] VITALS: BMI 32.5
[2017-04-11 19:49] VITALS: BP 150/88; PULSE 78; RESP 14; TEMP 98.7; O2SAT 99
--- NOTE | 2017-04-11 20:27 | C.PDOC ---
History Of Present Illness 32 y/o female with hx ivda, psychiatric disorder, presents to ED for c/o vaginal pain for more than 2 months. pt sts she was taking neurontin for this pain but recently stopped due to side effects of pain and pain has returned. pt also c/o 'abscess' on mons pubis that has been there intermittently for years, gets worse during menses. pt sts it was recently draining on its own and has now stopped and 'wants me to make it go away'. no fever or chills. Time Seen by Provider: 04/11/17 19:59 Chief Complaint (Nursing): Female Genitourinary History Per: Patient History/Exam Limitations: no limitations Onset/Duration Of Symptoms: Days Current Symptoms Are (Timing): Still Present Severity: Moderate Quality Of Discomfort: "Pain" Associated Symptoms: denies: Fever, Chills Past Medical History Reviewed: Historical Data, Nursing Documentation, Vital Signs Vital Signs: Last Vital Signs Temp 98.7 F 04/11/17 19:44 Pulse 78 04/11/17 19:44 Resp 14 04/11/17 19:44 BP 150/88 04/11/17 19:44 Pulse Ox 99 04/11/17 20:27 - Medical History PMH: Anxiety (drug induced), Back Problems, Bipolar Disorder, Depression, Diabetes, Gastritis, Gastrointestinal Ulcer, Hiatal Hernia, HTN, Kidney Stones ( history), Pancreatitis, Chronic Kidney Disease (kidney stones) Denies: Hepatitis, HIV, Seizures, Sexually Transmitted Disease Surgical History: - [facility] Procedures GROUP PSYCHOTHERAPY (12/17/16) INDIV PSYCHOTHERAPY FOR SUBSTANCE ABUSE TREATMENT, SUPPORT (01/19/17) INDIV PSYCHOTHERAPY FOR SUBSTANCE ABUSE, COGNITIV BEHAVIORAL (12/17/16) INDIV PSYCHOTHERAPY FOR SUBSTANCE ABUSE, PSYCHOEDUCATION (12/17/16) INDIVID PSYCHOTHERAP NEC (06/23/14) INFLUENZA VACCINATION (07/23/14) INJECT/INFUSE NEC (07/29/13) NEBULIZER THERAPY (07/29/13) OTHER GROUP THERAPY (06/23/14) Family History: States: Unknown Family Hx - Social History Hx Tobacco Use: No Hx Alcohol Use: Yes Hx Substance Use: Yes - Immunization History Hx Tetanus Toxoid Vaccination: No Hx Influenza Vaccination: No Hx Pneumococcal Vaccination: No Review Of Systems Constitutional: Negative for: Fever, Chills Genitourinary: Positive for: Frequency, Other (vaginal pain, 'abscess' on mons pubis ). Negative for: Incontinence Physical Exam - Physical Exam Appears: Non-toxic, No Acute Distress Skin: Normal Color, Warm, Dry, Other (0.5 cm area on right side mon pubis, mild erythema, tender, no fluctuance, no active drainage. ) ED Course And Treatment O2 Sat by Pulse Oximetry: 99 Medical Decision Making Medical Decision Making: pt c/o chronic vaginal pain; advised to f/u with her suede cleaner. pt with a persistent area of folliculitis on right mons pubis, sts she is using Bactroban topically to area, given no fluctuance, unable to incise area; pt advised to apply warm compresses and f./u with housing inspector. Disposition Counseled Patient/Family Regarding: Diagnosis, Need For Followup - Disposition Disposition: HOME/ ROUTINE Disposition Time: 20:30 Condition: STABLE Additional Instructions: Apply warm compresses to area on mons pubis several times a day. Follow up with dermatology and gynecology. Instructions: Folliculitis (ED) Forms: [facility] (Zambian), General Discharge Instructions - Clinical Impression Clinical Impression: Folliculitis
[2017-04-11 20:30] LABS: RBC URINE 2 /hpf (0-3); URINE BACTERIA RARE (<OCC); URINE BILIRUBIN NEGATIVE (NEGATIVE); URINE BLOOD NEGATIVE (NEGATIVE); URINE COLOR Yellow (YELLOW); URINE GLUCOSE (UA) NORMAL (Normal); URINE KETONE NEGATIVE (NEGATIVE); URINE LEUKOCYTE ESTERASE NEG Leu/uL (Negative); URINE PROTEIN NEGATIVE (NEGATIVE); URINE UROBILINOGEN NORMAL mg/dL (0.2-1.0); WBC URINE 2 /hpf (0-5)
== END 2017-04-11 20:34 | disposition home or self-care (01) ==
LOC: C.ER 19:30
DX: L73.9 Follicular disorder, unspecified (principal)

== ENCOUNTER 2017-04-18 18:36 | Emergency (ER) | payer MEDICAID ==
[2017-04-18 18:45] VITALS: BMI 33.2
[2017-04-18 18:50] VITALS: TEMP 98.9
[2017-04-18 20:18] VITALS: BP 146/94; PULSE 116; RESP 23; O2SAT 98
--- NOTE | 2017-04-18 20:21 | C.PDOC ---
History Of Present Illness 32 y/o female brought in by S, called EMS for polysubstance abuse since her elopement from her rehab program 4 days ago. Patient reports being awake for 3 days and wants sleeping pills. Patient is awake, oriented x3, and maudlin. Denies SI, HI, or somatic complaints at this time. Time Seen by Provider: 04/18/17 20:09 Chief Complaint (Nursing): Substance Abuse History Per: Patient History/Exam Limitations: no limitations Onset/Duration Of Symptoms: Days (4) Current Symptoms Are (Timing): Still Present Suicide/Self Injury Attempted (Context): None Modifying Factor(s): Other (Polysubstance) Severity: Mild Associated Symptoms: denies: Suicidal Thoughts, Suicidal Plan Recent travel outside of the [place]: No Additional History Per: Patient Past Medical History Reviewed: Historical Data, Nursing Documentation, Vital Signs Vital Signs: Last Vital Signs Temp 98.9 F 04/18/17 18:45 Pulse 116 H 04/18/17 20:06 Resp 23 04/18/17 20:06 BP 146/94 H 04/18/17 20:06 Pulse Ox 98 04/18/17 20:39 - Medical History PMH: Anxiety (drug induced), Back Problems, Bipolar Disorder, Depression, Diabetes, Gastritis, Gastrointestinal Ulcer, Hiatal Hernia, HTN, Kidney Stones ( history), Pancreatitis, Chronic Kidney Disease (kidney stones) Denies: Hepatitis, HIV, Seizures, Sexually Transmitted Disease Surgical History: - [facility] Procedures GROUP PSYCHOTHERAPY (12/17/16) INDIV PSYCHOTHERAPY FOR SUBSTANCE ABUSE TREATMENT, SUPPORT (01/19/17) INDIV PSYCHOTHERAPY FOR SUBSTANCE ABUSE, COGNITIV BEHAVIORAL (12/17/16) INDIV PSYCHOTHERAPY FOR SUBSTANCE ABUSE, PSYCHOEDUCATION (12/17/16) INDIVID PSYCHOTHERAP NEC (06/23/14) INFLUENZA VACCINATION (07/23/14) INJECT/INFUSE NEC (07/29/13) NEBULIZER THERAPY (07/29/13) OTHER GROUP THERAPY (06/23/14) Family History: States: Unknown Family Hx - Social History Hx Tobacco Use: No Hx Alcohol Use: Yes Hx Substance Use: Yes (MARIJUANA, PERCOCET, MOLLYS, PCP) - Immunization History Hx Tetanus Toxoid Vaccination: No Hx Influenza Vaccination: No Hx Pneumococcal Vaccination: No Review Of Systems Except As Marked, All Systems Reviewed And Found Negative. Constitutional: Positive for: Other (Polysubstance abuse) Psych: Negative for: Suicidal ideation, Other (Homicidal ideation) Physical Exam - Physical Exam Appears: Non-toxic, No Acute Distress, Other (Obese female) Skin: Warm, Dry Head: Atraumatic, Normacephalic Eye(s): bilateral: Other (Dilated pupils) Oral Mucosa: Moist Throat: Normal, No Erythema Chest: Symmetrical Cardiovascular: Rhythm Regular Respiratory: Normal Breath Sounds, No Rales, No Rhonchi, No Wheezing Gastrointestinal/Abdominal: Soft, No Tenderness Neurological/Psych: Oriented x3 ED Course And Treatment O2 Sat by Pulse Oximetry: 98 (RA) Pulse Ox Interpretation: Normal Medical Decision Making Medical Decision Making: Impression: Here for polysubstance abuse for 4 days. binging, stable and coherent now, now acute medical issues. Pending return to Rehab program from whence she eloped last week. Has a safe place to go tonight in [place] Disposition Doctor Will See Patient In The: Office Counseled Patient/Family Regarding: Studies Performed, Diagnosis - Disposition Referrals: Alcoholics Anonymous [Outside] [facility] [Outside] [facility] [Outside] [facility] [Outside] Disposition: HOME/ ROUTINE Disposition Time: 20:21 Condition: GOOD Additional Instructions: please follow-up at your Detox/Rehab program tomorrow as arranged. Seek Follow-up with our Psych Services as needed. Instructions: Polysubstance Abuse (ED) Forms: [facility] (Romanian) - Clinical Impression Clinical Impression: PCP (phencyclidine) abuse, Drug abuse - Scribe Statement The provider has reviewed the documentation as recorded by the Scribe Charity guerrero All medical record entries made by the Scribe were at my direction and personally dictated by me. I have reviewed the chart and agree that the record accurately reflects my personal performance of the history, physical exam, medical decision making, and the department course for this patient. I have also personally directed, reviewed, and agree with the discharge instructions and disposition.
--- NOTE | 2017-04-19 21:37 | CARD ---
APPROVED REPORT EKG Measurement Heart [id number] <Conclusion> Sinus tachycardia ST & T wave abnormality, consider inferior ischemia Abnormal ECG
== END 2017-04-18 21:00 | disposition home or self-care (01) ==
LOC: C.ER 18:36
DX: F16.10 Hallucinogen abuse, uncomplicated (principal)

== ENCOUNTER 2017-05-27 04:33 | Emergency (ER) | payer MEDICAID ==
[2017-05-27 04:34] VITALS: BMI 33.2
[2017-05-27 04:53] VITALS: O2SAT 97
--- NOTE | 2017-05-27 05:04 | C.PDOC ---
History Of Present Illness 32 year old female with a Hx of substance abuse and chronic back pain presents to the ED for a psychiatric evaluation. she states she has been having SI for the past week with no specific plan. Patient states she abuses drugs for pain relief due to her back problems, her drugs of choices are ETO, marijuana, heroin and PCP, her last use of PCP was today at midnight. Chief Complaint (Nursing): Psychiatric Evaluation History Per: Patient History/Exam Limitations: no limitations Onset/Duration Of Symptoms: Hrs Current Symptoms Are (Timing): Gone Modifying Factor(s): Alcohol, Marijuana, Other (PCP, heroin) Associated Symptoms: Suicidal Thoughts. denies: Suicidal Plan Recent travel outside of the [place]: No Additional History Per: Patient Past Medical History Reviewed: Historical Data, Nursing Documentation, Vital Signs Vital Signs: Last Vital Signs Temp 98.5 F 05/27/17 04:49 Pulse 98 H 05/27/17 04:49 Resp 16 05/27/17 04:49 BP 172/121 H 05/27/17 04:49 Pulse Ox 97 05/27/17 06:54 - Medical History PMH: Anxiety (drug induced), Back Problems, Bipolar Disorder, Depression, Diabetes, Gastritis, Gastrointestinal Ulcer, Hiatal Hernia, HTN, Kidney Stones ( history), Pancreatitis, Chronic Kidney Disease (kidney stones) Denies: Hepatitis, HIV, Seizures, Sexually Transmitted Disease Surgical History: No Surg Hx, - [facility] Procedures GROUP PSYCHOTHERAPY (12/17/16) INDIV PSYCHOTHERAPY FOR SUBSTANCE ABUSE TREATMENT, SUPPORT (01/19/17) INDIV PSYCHOTHERAPY FOR SUBSTANCE ABUSE, COGNITIV BEHAVIORAL (12/17/16) INDIV PSYCHOTHERAPY FOR SUBSTANCE ABUSE, PSYCHOEDUCATION (12/17/16) INDIVID PSYCHOTHERAP NEC (06/23/14) INFLUENZA VACCINATION (07/23/14) INJECT/INFUSE NEC (07/29/13) NEBULIZER THERAPY (07/29/13) OTHER GROUP THERAPY (06/23/14) Family History: States: Unknown Family Hx - Social History Hx Tobacco Use: No Hx Alcohol Use: Yes Hx Substance Use: Yes (MARIJUANA, PERCOCET, MOLLYS, PCP) - Immunization History Hx Tetanus Toxoid Vaccination: No Hx Influenza Vaccination: No Hx Pneumococcal Vaccination: No Review Of Systems Constitutional: Negative for: Fever Cardiovascular: Negative for: Chest Pain, Palpitations Respiratory: Negative for: Cough, Shortness of Breath Gastrointestinal: Negative for: Nausea, Vomiting, Abdominal Pain Skin: Negative for: Rash Neurological: Negative for: Weakness, Numbness Psych: Positive for: Suicidal ideation. Negative for: Depression Physical Exam - Physical Exam Appears: Non-toxic, No Acute Distress Skin: Normal Color, Warm, Dry Head: Atraumatic, Normacephalic Oral Mucosa: Moist Neck: Normal ROM, Supple Chest: Symmetrical, No Tenderness Cardiovascular: Rhythm Regular, No Murmur Respiratory: Normal Breath Sounds, No Accessory Muscle Use, No Rales, No Rhonchi , No Wheezing Gastrointestinal/Abdominal: Soft, No Tenderness Extremity: Normal ROM, No Pedal Edema, No Calf Tenderness, No Swelling Neurological/Psych: Oriented x3, Normal Speech, Normal Cognition ED Course And Treatment - Laboratory Results Result Diagrams: 05/27/17 05:25 05/27/17 05:25 O2 Sat by Pulse Oximetry: 97 (On RA) Pulse Ox Interpretation: Normal Medical Decision Making Medical Decision Making: Impression : 32 y/o female with SI for the past week and chronic back pain. Plan: * Blood work ordered * UA ordered Patient states having SI for the past week, denies any HI at this time. She had previous SI with a plan, blames it on her chronic back pain. She will be placed on a 1:1 for her own safety. Disposition - Disposition Disposition Time: 07:00 Condition: STABLE Forms: [facility] (Slovenian) - Clinical Impression Clinical Impression: Suicidal ideation - Scribe Statement The provider has reviewed the documentation as recorded by the Scribe Zaid Carey All medical record entries made by the Scribe were at my direction and personally dictated by me. I have reviewed the chart and agree that the record accurately reflects my personal performance of the history, physical exam, medical decision making, and the department course for this patient. I have also personally directed, reviewed, and agree with the discharge instructions and disposition. Physician Patient Turnover - . Patient Signed Over To: Tiago Broussard Handoff Comments: Patient awaiting crisis evaluation in the morning.
[2017-05-27 05:14] LABS: RBC URINE 1 /hpf (0-3); URINE BILIRUBIN NEGATIVE (NEGATIVE); URINE BLOOD NEGATIVE (NEGATIVE); URINE COLOR Straw (YELLOW); URINE GLUCOSE (UA) NORMAL (Normal); URINE KETONE NEGATIVE (NEGATIVE); URINE LEUKOCYTE ESTERASE NEG Leu/uL (Negative); URINE PROTEIN NEGATIVE (NEGATIVE); URINE UROBILINOGEN NORMAL mg/dL (0.2-1.0); WBC URINE < 1 /hpf (0-5)
[2017-05-27 05:29] LABS: BASO # 0.1 K/uL (0.0-0.2); BASO % 0.6 % (0.0-2.0); EOS # 0.2 K/uL (0.0-0.7); EOS % 1.7 % (0.0-4.0); LYMPH # 3.6 K/uL (1.0-4.3); LYMPH % 25.8 % (20.0-40.0); MEAN CELL VOLUME 92.4 fL (81.0-99.0); MEAN CORPUSCULAR HEMOGLOBIN 30.7 pg (27.0-31.0); MEAN CORPUSCULAR HGB CONC 33.2 g/dL (33.0-37.0); MEAN PLATELET VOLUME 9.5 fL (7.2-11.7); MONO # 0.9 K/uL (0.0-0.8); MONO % 6.4 % (0.0-10.0); RED CELL DISTRIBUTION WIDTH 13.2 % (11.5-14.5)
[2017-05-27 05:41] LABS: ALB/GLOB RATIO 1.1 (1.0-2.1); ALCOHOL SERUM < 10 mg/dl (0-10); ALKALINE PHOSPHATASE 94 U/L (38-126); ALT/SGPT 38 U/L (9-52); AST/SGOT 19 U/L (14-36); BILIRUBIN,TOTAL 0.4 mg/dL (0.2-1.3); BLOOD UREA NITROGEN 10 mg/dL (7-17); CALCIUM 8.9 mg/dl (8.6-10.4); CARBON DIOXIDE 25 mmol/L (22-30); CHLORIDE 103 mmol/L (98-107); GFR AFRICAN-AMERICAN > 60; GLUCOSE,RANDOM 116 mg/dL (65-105); POTASSIUM 3.8 mmol/L (3.6-5.2); SODIUM 137 mmol/L (132-148)
[2017-05-27 10:01] VITALS: BP 142/97; PULSE 88; RESP 20; TEMP 97.8
--- NOTE | 2017-05-27 22:50 | PCM.PSYCH ---
Initial Psychiatric Evaluation - Initial Psychiatric Evaluation Type of Admission: Voluntary Legal Status: Capacity History of Present Illness and Precipitating Events: cleared for d/c full note to follow referred to [facility] Patient is a 31 years old CF, is currently unemployed who lives with significant other , with a long history of bipolar disorder, PCP abuse and opioid abuse came to the ED with depressed and agitated mood and suicidal ideation. patient reports a long history of abusing PCP and opioids. Patient reports that she was discharged from [facility] last year. But she stopped taking her meds and replased on PCP. As per her, yesterday she had a verbal altercation with her family and she started abusing PCP, became increasingly irritable and agitated and developed suicidal ideation, so came to the hospital to get help. Patient reports of depressed, irritable and agitated mood, reports poor sleep and poor appetite. Pt also reports at times racing of thoughts, and flight of ideas. She reports being paranoid sometimes but denies any auditory hallucinations or visual hallucinations. Past psychiatric History Patient reports history of multiple inpatient psychiatric hospitalizations but denies any follow-up with any psychiatrist. She reports history of more than 2 suicidal attempts. Last attempt was last year when she was admitted on medical floor. When patient overdosed on her blood pressure medications and insulin. however she denies any homicidal ideation. She reports history of paranoia due to drug use but denies any hallucinations in the past PMH h/o HTN, DM, Herniated disc, GERD Past Psychiatric History - Past Psychiatric History Pertinent Medical Hx (Current Medical&Sleep Prob, Allergies): Allergies Allergy/AdvReac Type Severity Reaction Status Date / Time aripiprazole [From Abilify] Allergy ANAPHYLAXIS Verified 05/27/17 04:54 bupropion [From Wellbutrin] Allergy ANAPHYLAXIS Verified 05/27/17 04:54 escitalopram [From Lexapro] Allergy ANAPHYLAXIS Verified 05/27/17 04:54 lurasidone [From Latuda] Allergy ANAPHYLAXIS Verified 05/27/17 04:54 quetiapine [From Seroquel] Allergy ANAPHYLAXIS Verified 05/27/17 04:54 risperidone [From Risperdal] Allergy ANAPHYLAXIS Verified 05/27/17 04:54 topiramate [From Topamax] Allergy ANAPHYLAXIS Verified 05/27/17 04:54 ciprofloxacin [From Cipro] AdvReac RASH Verified 05/27/17 04:54 haloperidol [From Haldol] AdvReac FATIGUE Verified 05/27/17 04:54 haloperidol lactate AdvReac FATIGUE Verified 05/27/17 04:54 [From Haldol] ziprasidone HCl [From Geodon] AdvReac FATIGUE Verified 05/27/17 04:54 ziprasidone mesylate AdvReac FATIGUE Verified 05/27/17 04:54 [From Geodon] Rayo Vogt U-100 70 units SQ DAILY 05/16/17 Humulin N 05/16/17 Ibuprofen 05/16/17 Losartan 05/16/17 Omeprazole 05/16/17 DSM 5 DX - DSM 5 DSM 5 Diagnosis: Bipolar II d/o - last episode depressed Borderline personality d/o PCP use d/o - severe Opioid use d/o - in early remission
== END 2017-05-27 10:29 | disposition home or self-care (01) ==
LOC: C.ER 04:33
DX: R45.851 Suicidal ideations (principal); F32.1 Major depressive disorder, single episode, moderate; F19.10 Other psychoactive substance abuse, uncomplicated; F32.9 Major depressive disorder, single episode, unspecified; I10 Essential (primary) hypertension; E11.9 Type 2 diabetes mellitus without complications
CPT/HCPCS: 80053; 80320; 80324; 80345; 80346; 80349; 80353; 80358; 80361; 81001; 83992; 84703; 85025; 96372; 99284; J1885

== ENCOUNTER 2017-07-20 13:10 | Emergency (ER) | payer MEDICAID ==
[2017-07-20 13:11] VITALS: BMI 33.2
[2017-07-20 15:14] VITALS: BP 152/87; PULSE 105; RESP 18; TEMP 97.8; O2SAT 98
--- NOTE | 2017-07-20 15:34 | C.PDOC ---
History Of Present Illness Karissa Prajapati is a 32 year old female, with a past medical history of diabetes, HTN and GERD, who presents to the emergency department complaining of a worsening chronic cervical pain that radiates to the arm and back. Patient took motrin this morning. 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 She denies any other medical complaints. PMD: None provided. Time Seen by Provider: 07/20/17 15:33 Chief Complaint (Nursing): Back Pain History Per: Patient History/Exam Limitations: no limitations Onset/Duration Of Symptoms: Days (chronic), Worse Since (last year) Current Symptoms Are (Timing): Still Present Quality Of Discomfort: "Pain" Previous Symptoms: Chronic Pain Associated Symptoms: None Past Medical History Reviewed: Historical Data, Nursing Documentation, Vital Signs Vital Signs: Last Vital Signs Temp 97.8 F 07/20/17 15:14 Pulse 105 H 07/20/17 15:14 Resp 18 07/20/17 15:14 BP 152/87 H 07/20/17 15:14 Pulse Ox 98 07/20/17 16:52 - Medical History PMH: Anxiety (drug induced), Back Problems, Bipolar Disorder, Depression, Diabetes, Gastritis, Gastrointestinal Ulcer, Hiatal Hernia, HTN, Kidney Stones ( history), Pancreatitis, Chronic Kidney Disease (kidney stones) Denies: Hepatitis, HIV, Seizures, Sexually Transmitted Disease Surgical History: - [facility] Procedures GROUP PSYCHOTHERAPY (12/17/16) INDIV PSYCHOTHERAPY FOR SUBSTANCE ABUSE TREATMENT, SUPPORT (01/19/17) INDIV PSYCHOTHERAPY FOR SUBSTANCE ABUSE, COGNITIV BEHAVIORAL (12/17/16) INDIV PSYCHOTHERAPY FOR SUBSTANCE ABUSE, PSYCHOEDUCATION (12/17/16) INDIVID PSYCHOTHERAP NEC (06/23/14) INFLUENZA VACCINATION (07/23/14) INJECT/INFUSE NEC (07/29/13) NEBULIZER THERAPY (07/29/13) OTHER GROUP THERAPY (06/23/14) Family History: States: Unknown Family Hx - Social History Hx Tobacco Use: No Hx Alcohol Use: Yes Hx Substance Use: Yes (MARIJUANA, PERCOCET, MOLLYS, PCP) - Immunization History Hx Tetanus Toxoid Vaccination: No Hx Influenza Vaccination: No Hx Pneumococcal Vaccination: No Review Of Systems Musculoskeletal: Positive for: Neck Pain, Arm Pain, Back Pain Physical Exam - Physical Exam Appears: Other (tearful.) Skin: Normal Color, Warm, Dry Head: Atraumatic Eye(s): bilateral: Normal Inspection Neck: Normal, Normal ROM, Supple Extremity: Normal ROM (moving all extremities. No sign of trauma. ), No Pedal Edema, No Deformity, No Swelling, No Other (no signs of trauma) Neurological/Psych: Oriented x3 (neurologically intact) ED Course And Treatment O2 Sat by Pulse Oximetry: 98 (RA) Pulse Ox Interpretation: Normal Medical Decision Making Medical Decision Making: Initial Impression: chronic neck and back pain Initial Plan: --Lidoderm 1 ea TD --Motrin tab 600 mg PO --Toradol 60 mg IM --Tylenol 325 tab 975 mg PO --reevaluation Disposition Counseled Patient/Family Regarding: Need For Followup, Rx Given - Disposition Referrals: [facility] [Outside] Disposition: HOME/ ROUTINE Disposition Time: 16:51 Condition: STABLE Instructions: Chronic Pain (ED) Forms: [facility] [facility] (Urdu) - POA Present On Arrival: None - Clinical Impression Clinical Impression: Chronic pain disorder - Scribe Statement Manuel Ybarra Provider Attestation: All medical record entries made by the Scribe were at my direction and personally dictated by me. I have reviewed the chart and agree that the record accurately reflects my personal performance of the history, physical exam, medical decision making, and the department course for this patient. I have also personally directed, reviewed, and agree with the discharge instructions and disposition.
[2017-07-20] MEDS ORDERED: Lidocaine 5% Patch TD STA (15:53)
[2017-07-20] MEDS ORDERED: Lidocaine 5% Patch TD ONE (16:11)
== END 2017-07-20 17:53 | disposition home or self-care (01) ==
LOC: C.ER 13:10
DX: G89.29 Other chronic pain (principal)
CPT/HCPCS: 96372; 99284; J1885

== ENCOUNTER 2017-10-13 14:31 | Emergency (ER) | payer MEDICAID ==
[2017-10-13 14:57] VITALS: BMI 34.1
[2017-10-13 15:02] VITALS: BP 132/65; PULSE 84; TEMP 98.5; O2SAT 98
--- NOTE | 2017-10-13 15:28 | C.PDOC ---
History Of Present Illness 32yo female, presents to ED with complaints of left flank for the past week. She also reports she has had increasing abdominal girth however she has had no changes in her weight; she is concerned she might be . Patient states her LMP "sometime last month" and is currently on her menstrual cycle; patient states her current menstrual blood is "darker than usual" causing her concern. She has been having nausea but denies any fever or vomiting. Patient states she was evaluated at [facility] 2 months ago for similar complaints, had a CT scan which was normal and discharged home with diagnosis of flank pain. Patient states she wants to make sure that due to her increasing abdominal girth and abnormal menstrual cycle, she is not . No other complaints. Time Seen by Provider: 10/13/17 15:07 Chief Complaint (Nursing): Abdominal Pain History Per: Patient History/Exam Limitations: no limitations Onset/Duration Of Symptoms: Days Current Symptoms Are (Timing): Still Present Additional History Per: Patient Last Menstral Period: 1 month ago, currently on her menstrual period Past Medical History Reviewed: Historical Data, Nursing Documentation, Vital Signs Vital Signs: Last Vital Signs Temp 98.5 F 10/13/17 14:57 Pulse 84 10/13/17 14:57 Resp 20 10/13/17 14:57 BP 132/65 10/13/17 14:57 Pulse Ox 98 10/13/17 15:32 - Medical History PMH: Anxiety (drug induced), Back Problems, Bipolar Disorder, Depression, Diabetes, Gastritis, Gastrointestinal Ulcer, Hiatal Hernia, HTN, Kidney Stones ( history), Pancreatitis, Chronic Kidney Disease (kidney stones) Denies: Hepatitis, HIV, Seizures, Sexually Transmitted Disease Surgical History: - [facility] Procedures GROUP PSYCHOTHERAPY (12/17/16) INDIV PSYCHOTHERAPY FOR SUBSTANCE ABUSE TREATMENT, SUPPORT (01/19/17) INDIV PSYCHOTHERAPY FOR SUBSTANCE ABUSE, COGNITIV BEHAVIORAL (12/17/16) INDIV PSYCHOTHERAPY FOR SUBSTANCE ABUSE, PSYCHOEDUCATION (12/17/16) INDIVID PSYCHOTHERAP NEC (06/23/14) INFLUENZA VACCINATION (07/23/14) INJECT/INFUSE NEC (07/29/13) NEBULIZER THERAPY (07/29/13) OTHER GROUP THERAPY (06/23/14) Family History: States: Unknown Family Hx - Social History Hx Tobacco Use: No Hx Alcohol Use: Yes Hx Substance Use: Yes - Immunization History Hx Tetanus Toxoid Vaccination: No Hx Influenza Vaccination: Yes Hx Pneumococcal Vaccination: Yes Review Of Systems Except As Marked, All Systems Reviewed And Found Negative. Constitutional: Negative for: Fever, Chills Gastrointestinal: Positive for: Nausea, Abdominal Pain, Other (increasing abdominal girth ). Negative for: Vomiting, Diarrhea Genitourinary: Positive for: Other ("darker" menstrual blood) Physical Exam - Physical Exam Appears: Non-toxic, No Acute Distress Skin: Normal Color, Warm, Dry Head: Atraumatic, Normacephalic Eye(s): bilateral: Normal Inspection, PERRL, EOMI Neck: Normal ROM, Supple Chest: Symmetrical Cardiovascular: Rhythm Regular Respiratory: Normal Breath Sounds Gastrointestinal/Abdominal: Normal Exam, Soft, Tenderness (mild left lank tenderness), No Mass, No Guarding, No Rebound, Other (central obesity noted to abdomen) Back: No CVA Tenderness Extremity: Normal ROM Neurological/Psych: Oriented x3 ED Course And Treatment - Laboratory Results Result Diagrams: 10/13/17 15:30 10/13/17 15:30 Lab Interpretation: No Acute Changes O2 Sat by Pulse Oximetry: 98 (RA) Pulse Ox Interpretation: Normal Reevaluation Time: 17:17 Reassessment Condition: Unchanged (Patient is in no acute distress.) Medical Decision Making Medical Decision Making: Plan: -- CBC -- CMP -- Thyroid profile -- Lipase -- Beta-HCG quantitative -- Urine -- Urinalysis Disposition Counseled Patient/Family Regarding: Studies Performed, Diagnosis, Need For Followup - Disposition Referrals: James Ko MD [Staff Provider] - Disposition: HOME/ ROUTINE Disposition Time: 17:17 Condition: STABLE Instructions: Flank Pain Forms: [employer] (Khmer) - Clinical Impression Clinical Impression: Left flank pain - Scribe Statement The provider has reviewed the documentation as recorded by the Scribe (Kylee Sanches) Provider Attestation: All medical record entries made by the Scribe were at my direction and personally dictated by me. I have reviewed the chart and agree that the record accurately reflects my personal performance of the history, physical exam, medical decision making, and the department course for this patient. I have also personally directed, reviewed, and agree with the discharge instructions and disposition.
[2017-10-13 15:31] LABS: HCG,QUALITATIVE URINE NEGATIVE (NEGATIVE)
[2017-10-13 15:38] LABS: BASO # 0.1 K/uL (0.0-0.2); BASO % 1.1 % (0.0-2.0); EOS # 0.2 K/uL (0.0-0.7); EOS % 2.2 % (0.0-4.0); HEMOGLOBIN 12.5 g/dL (11.0-16.0); LYMPH # 3.4 K/uL (1.0-4.3); LYMPH % 33.5 % (20.0-40.0); MEAN CELL VOLUME 92.7 fL (81.0-99.0); MEAN CORPUSCULAR HEMOGLOBIN 32.2 pg (27.0-31.0); MEAN CORPUSCULAR HGB CONC 34.8 g/dL (33.0-37.0); MEAN PLATELET VOLUME 10.1 fL (7.2-11.7); MONO # 0.8 K/uL (0.0-0.8); MONO % 7.7 % (0.0-10.0); NEUT # 5.7 K/uL (1.8-7.0); NEUT % 55.5 % (50.0-75.0); NRBC % 0.1 % (0.0-2.0); RBC 3.88 Mil/uL (3.80-5.20); RED CELL DISTRIBUTION WIDTH 12.8 % (11.5-14.5); WHITE BLOOD COUNT 10.2 K/uL (4.8-10.8)
[2017-10-13 15:41] LABS: SQUAMOUS EPITHIAL 10 /hpf (0-5); URINE BACTERIA OCC (<OCC); URINE BILIRUBIN NEGATIVE (NEGATIVE); URINE BLOOD 2+ (NEGATIVE); URINE CLARITY Hazy (Clear); URINE COLOR Yellow (YELLOW); URINE GLUCOSE (UA) NORMAL (Normal); URINE LEUKOCYTE ESTERASE NEG Leu/uL (Negative); URINE PROTEIN NEGATIVE (NEGATIVE); URINE UROBILINOGEN NORMAL mg/dL (0.2-1.0)
[2017-10-13 15:51] LABS: ALB/GLOB RATIO 1.3 (1.0-2.1); ALBUMIN 4.1 g/dL (3.5-5.0); ALT/SGPT 27 U/L (9-52); AST/SGOT 24 U/L (14-36); BLOOD UREA NITROGEN 11 mg/dL (7-17); CALCIUM 8.8 mg/dl (8.6-10.4); GFR AFRICAN-AMERICAN > 60; GFR NON-AFRICAN AMERICAN > 60; LIPASE 73 U/L (23-300)
[2017-10-13 16:14] LABS: FREE T4 1.47 ng/dL (0.78-2.19)
[2017-10-13 17:57] VITALS: RESP 18
== END 2017-10-13 17:58 | disposition home or self-care (01) ==
LOC: C.ER 14:31
DX: R10.9 Unspecified abdominal pain (principal); I12.9 Hypertensive chronic kidney disease with stage 1 through stage 4 chronic kidney disease, or unspecified chronic kidney disease; E11.22 Type 2 diabetes mellitus with diabetic chronic kidney disease; N18.9 Chronic kidney disease, unspecified; F17.210 Nicotine dependence, cigarettes, uncomplicated

== ENCOUNTER 2017-10-24 14:21 | Emergency (ER) | payer MEDICAID ==
[2017-10-24 14:22] VITALS: BMI 34.1
[2017-10-24 14:42] VITALS: BP 169/94; PULSE 87; RESP 20; TEMP 98.3; O2SAT 97
[2017-10-24 15:57] LABS: BASO # 0.1 K/uL (0.0-0.2); BASO % 0.7 % (0.0-2.0); EOS # 0.3 K/uL (0.0-0.7); HEMOGLOBIN 13.9 g/dL (11.0-16.0); LYMPH # 3.6 K/uL (1.0-4.3); LYMPH % 27.5 % (20.0-40.0); MEAN CELL VOLUME 92.7 fL (81.0-99.0); MEAN CORPUSCULAR HEMOGLOBIN 31.3 pg (27.0-31.0); MEAN CORPUSCULAR HGB CONC 33.8 g/dL (33.0-37.0); MEAN PLATELET VOLUME 9.8 fL (7.2-11.7); MONO # 0.8 K/uL (0.0-0.8); MONO % 6.2 % (0.0-10.0); NEUT # 8.4 K/uL (1.8-7.0); NEUT % 63.6 % (50.0-75.0); RBC 4.44 Mil/uL (3.80-5.20); RED CELL DISTRIBUTION WIDTH 13.3 % (11.5-14.5); WHITE BLOOD COUNT 13.2 K/uL (4.8-10.8)
[2017-10-24 16:09] LABS: SQUAMOUS EPITHIAL 4 /hpf (0-5); URINE BACTERIA RARE (<OCC); URINE BILIRUBIN NEGATIVE (NEGATIVE); URINE BLOOD NEGATIVE (NEGATIVE); URINE CLARITY Clear (Clear); URINE COLOR Straw (YELLOW); URINE GLUCOSE (UA) NORMAL (Normal); URINE LEUKOCYTE ESTERASE NEG Leu/uL (Negative); URINE PROTEIN NEGATIVE (NEGATIVE); URINE UROBILINOGEN NORMAL mg/dL (0.2-1.0)
[2017-10-24 16:12] LABS: ALB/GLOB RATIO 1.3 (1.0-2.1); ALBUMIN 4.6 g/dL (3.5-5.0); ALT/SGPT 27 U/L (9-52); AST/SGOT 29 U/L (14-36); BLOOD UREA NITROGEN 12 mg/dL (7-17); CALCIUM 9.6 mg/dl (8.6-10.4); GFR AFRICAN-AMERICAN > 60; GFR NON-AFRICAN AMERICAN > 60; LIPASE 52 U/L (23-300)
[2017-10-24 16:21] LABS: BARBITURATES, UR NEGATIVE (NEGATIVE); BENZODIAZEPINES, UR NEGATIVE (NEGATIVE); OPIATES, UR NEGATIVE (NEGATIVE)
[2017-10-24 16:22] LABS: PHENCYCLIDINE, UR POSITIVE (NEGATIVE)
--- NOTE | 2017-10-24 17:32 | C.PDOC ---
Time Seen by Provider: 10/24/17 15:21 Chief Complaint (Nursing): Psychiatric Evaluation History Per: Patient Onset/Duration Of Symptoms: Days Current Symptoms Are (Timing): Still Present Suicide/Self Injury Attempted (Context): None Modifying Factor(s): Other (PCP) Associated Symptoms: Agitation. denies: Suicidal Thoughts, Suicidal Plan Additional History Per: Prior Records Past Medical History Reviewed: Historical Data, Nursing Documentation, Vital Signs Vital Signs: Last Vital Signs Temp 98.3 F 10/24/17 14:37 Pulse 87 10/24/17 14:37 Resp 20 10/24/17 14:37 BP 169/94 H 10/24/17 14:37 Pulse Ox 97 10/24/17 14:37 - Medical History PMH: Anxiety (drug induced), Back Problems, Bipolar Disorder, Depression, Diabetes, Gastritis, Gastrointestinal Ulcer, Hiatal Hernia, HTN, Kidney Stones ( history), Pancreatitis, Chronic Kidney Disease (kidney stones) Surgical History: - [facility] Procedures GROUP PSYCHOTHERAPY (12/17/16) INDIV PSYCHOTHERAPY FOR SUBSTANCE ABUSE TREATMENT, SUPPORT (01/19/17) INDIV PSYCHOTHERAPY FOR SUBSTANCE ABUSE, COGNITIV BEHAVIORAL (12/17/16) INDIV PSYCHOTHERAPY FOR SUBSTANCE ABUSE, PSYCHOEDUCATION (12/17/16) INDIVID PSYCHOTHERAP NEC (06/23/14) INFLUENZA VACCINATION (07/23/14) INJECT/INFUSE NEC (07/29/13) NEBULIZER THERAPY (07/29/13) OTHER GROUP THERAPY (06/23/14) Family History: States: Unknown Family Hx - Social History Hx Tobacco Use: No Hx Alcohol Use: Yes Hx Substance Use: Yes - Immunization History Hx Tetanus Toxoid Vaccination: Yes Hx Influenza Vaccination: Yes Hx Pneumococcal Vaccination: Yes Review Of Systems Except As Marked, All Systems Reviewed And Found Negative. Constitutional: Negative for: Fever Cardiovascular: Negative for: Chest Pain Respiratory: Negative for: Shortness of Breath Gastrointestinal: Positive for: Other (Chronic left flank pain). Negative for: Vomiting Genitourinary: Negative for: Dysuria Neurological: Negative for: Weakness, Numbness, Seizures Psych: Negative for: Psychosis Physical Exam - Physical Exam Appears: Non-toxic, No Acute Distress Skin: Normal Color, Warm, Dry, No Rash Head: Atraumatic, Normacephalic Eye(s): bilateral: PERRL, EOMI Neck: Normal ROM, Supple Cardiovascular: Rhythm Regular Respiratory: Normal Breath Sounds, No Accessory Muscle Use Gastrointestinal/Abdominal: Soft, No Tenderness Extremity: Normal ROM, No Deformity Neurological/Psych: Oriented x3, Normal Motor, Normal Sensation ED Course And Treatment - Laboratory Results Result Diagrams: 10/24/17 15:41 10/24/17 15:41 Lab Interpretation: No Acute Changes Urine POC: Negative O2 Sat by Pulse Oximetry: 97 Pulse Ox Interpretation: Normal Progress Note: Pt was evaluated by the automotive worker who d/w Dr. Ashraf. They psychiatrically cleared pt for discharge home. Disposition Counseled Patient/Family Regarding: Studies Performed, Diagnosis, Need For Followup, Smoking Cessation - Disposition Referrals: James Ko MD [Staff Provider] - Disposition: HOME/ ROUTINE Disposition Time: 17:33 Condition: STABLE Additional Instructions: Avoid any illicit drugs. Follow up with your doctor for further evaluation and treatment. Return to the ER if you develop worsening of symptoms or if you have any other concerns. Instructions: Flank Pain (DC), Polysubstance Abuse (DC) - Clinical Impression Clinical Impression: Chronic left flank pain, PCP (phencyclidine) abuse
--- NOTE | 2017-10-25 12:53 | CARD ---
APPROVED REPORT EKG Measurement Heart [id number] <Conclusion> Normal sinus rhythm with sinus arrhythmia Normal ECG
== END 2017-10-24 17:46 | disposition home or self-care (01) ==
LOC: C.ER 14:21
DX: F16.10 Hallucinogen abuse, uncomplicated (principal); R10.9 Unspecified abdominal pain; I10 Essential (primary) hypertension; E11.9 Type 2 diabetes mellitus without complications; F41.9 Anxiety disorder, unspecified; F31.9 Bipolar disorder, unspecified; F17.210 Nicotine dependence, cigarettes, uncomplicated
CPT/HCPCS: 80053; 80320; 80324; 80345; 80346; 80349; 80353; 80358; 80361; 81001; 83690; 83992; 84703; 85025; 93005; 96372; 99285; J1885

== ENCOUNTER 2017-11-08 18:53 | Emergency (ER) | payer MEDICAID ==
[2017-11-08 18:54] VITALS: BMI 34.1
[2017-11-08 19:18] VITALS: RESP 20
[2017-11-08] MEDS ORDERED: Sodium Chloride 0.9% 1,000 ML IV ONE (19:23)
--- NOTE | 2017-11-08 19:23 | C.PDOC ---
History Of Present Illness Patient presents to the ER with a complaint of vaginal bleeding and cramping intermittently for the past 2 weeks. Denies fever, chills, nausea, or vomiting. Time Seen by Provider: 11/08/17 19:22 Chief Complaint (Nursing): Female Genitourinary History Per: Patient History/Exam Limitations: no limitations Onset/Duration Of Symptoms: Days, Intermittent Episodes Current Symptoms Are (Timing): Still Present Severity: Moderate Pain Scale Rating Of: 4 Quality Of Discomfort: Cramping Associated Symptoms: denies: Fever, Chills, Nausea, Vomiting Alleviating Factors: None Recent travel outside of the [place]: No Abnormal Vaginal Bleeding: Yes Past Medical History Reviewed: Historical Data, Nursing Documentation, Vital Signs Vital Signs: Last Vital Signs Temp 97.9 F 11/08/17 22:19 Pulse 73 11/08/17 22:19 Resp 20 11/08/17 22:19 BP 126/76 11/08/17 22:19 Pulse Ox 97 11/08/17 22:19 - Medical History PMH: Anxiety (drug induced), Back Problems, Bipolar Disorder, Depression, Diabetes, Gastritis, Gastrointestinal Ulcer, Hiatal Hernia, HTN, Kidney Stones ( history), Pancreatitis, Chronic Kidney Disease (kidney stones) Surgical History: - [facility] Procedures GROUP PSYCHOTHERAPY (12/17/16) INDIV PSYCHOTHERAPY FOR SUBSTANCE ABUSE TREATMENT, SUPPORT (01/19/17) INDIV PSYCHOTHERAPY FOR SUBSTANCE ABUSE, COGNITIV BEHAVIORAL (12/17/16) INDIV PSYCHOTHERAPY FOR SUBSTANCE ABUSE, PSYCHOEDUCATION (12/17/16) INDIVID PSYCHOTHERAP NEC (06/23/14) INFLUENZA VACCINATION (07/23/14) INJECT/INFUSE NEC (07/29/13) NEBULIZER THERAPY (07/29/13) OTHER GROUP THERAPY (06/23/14) Family History: States: No Known Family Hx - Social History Hx Tobacco Use: No Hx Alcohol Use: Yes Hx Substance Use: Yes - Immunization History Hx Tetanus Toxoid Vaccination: No Hx Influenza Vaccination: No Hx Pneumococcal Vaccination: No Review Of Systems Constitutional: Negative for: Fever, Chills Gastrointestinal: Positive for: Abdominal Pain (Cramping). Negative for: Nausea , Vomiting Genitourinary: Positive for: Vaginal Bleeding Physical Exam - Physical Exam Appears: Non-toxic Skin: Warm, Dry Head: Normacephalic Oral Mucosa: Moist Chest: Symmetrical, No Tenderness Cardiovascular: Rhythm Regular Respiratory: No Rales, No Rhonchi, No Wheezing Gastrointestinal/Abdominal: Soft, Tenderness (Suprapubic), No Guarding, No Rebound Neurological/Psych: Oriented x3 ED Course And Treatment - Laboratory Results Result Diagrams: 11/08/17 19:52 11/08/17 19:52 O2 Sat by Pulse Oximetry: 99 (Room air) Pulse Ox Interpretation: Normal Progress Note: Blood work and urinalysis ordered. IV fluids administered. Reevaluation Time: 22:57 Reassessment Condition: Improved Disposition Counseled Patient/Family Regarding: Studies Performed, Diagnosis, Need For Followup, Rx Given - Disposition Referrals: James Ko MD [Staff Provider] - Disposition: HOME/ ROUTINE Disposition Time: 19:23 Condition: FAIR Prescriptions: traMADol [Ultram] 50 mg PO QID PRN #20 tab PRN Reason: Pain, Severe (8-10) Instructions: Ovarian Cyst (DC) Forms: [employer] (Moldovan) - Clinical Impression Clinical Impression: Ovarian cyst - Scribe Statement The provider has reviewed the documentation as recorded by the Scribe Larry Roberts All medical record entries made by the Scribe were at my direction and personally dictated by me. I have reviewed the chart and agree that the record accurately reflects my personal performance of the history, physical exam, medical decision making, and the department course for this patient. I have also personally directed, reviewed, and agree with the discharge instructions and disposition.
[2017-11-08 19:57] LABS: BASO # 0.1 K/uL (0.0-0.2); BASO % 0.5 % (0.0-2.0); EOS # 0.1 K/uL (0.0-0.7); EOS % 0.4 % (0.0-4.0); HEMOGLOBIN 14.7 g/dL (11.0-16.0); LYMPH # 3.8 K/uL (1.0-4.3); LYMPH % 24.6 % (20.0-40.0); MEAN CELL VOLUME 92.2 fL (81.0-99.0); MEAN CORPUSCULAR HGB CONC 34.8 g/dL (33.0-37.0); MEAN PLATELET VOLUME 9.3 fL (7.2-11.7); MONO % 6.3 % (0.0-10.0); NEUT # 10.6 K/uL (1.8-7.0); NEUT % 68.2 % (50.0-75.0); NRBC % 0.1 % (0.0-2.0); RBC 4.58 Mil/uL (3.80-5.20); RED CELL DISTRIBUTION WIDTH 13.5 % (11.5-14.5); WHITE BLOOD COUNT 15.5 K/uL (4.8-10.8)
[2017-11-08 20:01] LABS: SQUAMOUS EPITHIAL 3 /hpf (0-5); URINE BACTERIA RARE (<OCC); URINE BILIRUBIN NEGATIVE (NEGATIVE); URINE BLOOD 3+ (NEGATIVE); URINE CLARITY Hazy (Clear); URINE COLOR Yellow (YELLOW); URINE GLUCOSE (UA) NORMAL (Normal); URINE LEUKOCYTE ESTERASE NEG Leu/uL (Negative); URINE PROTEIN NEGATIVE (NEGATIVE); URINE UROBILINOGEN NORMAL mg/dL (0.2-1.0)
[2017-11-08 20:04] LABS: HCG,QUALITATIVE URINE NEGATIVE (NEGATIVE)
[2017-11-08 20:07] LABS: INR 1.1; PROTHROMBIN TIME 12.2 SECONDS (9.7-12.2)
[2017-11-08 20:14] LABS: ALB/GLOB RATIO 1.2 (1.0-2.1); ALBUMIN 4.6 g/dL (3.5-5.0); BLOOD UREA NITROGEN 10 mg/dL (7-17); GFR AFRICAN-AMERICAN > 60; GFR NON-AFRICAN AMERICAN > 60
[2017-11-08 20:19] LABS: ALT/SGPT 11 U/L (9-52); AST/SGOT 30 U/L (14-36); CALCIUM 9.6 mg/dl (8.6-10.4)
[2017-11-08 22:20] VITALS: BP 126/76; PULSE 73; TEMP 97.9
--- NOTE | 2017-11-08 22:37 | CT ---
EXAM: CT Abdomen and Pelvis Without Intravenous Contrast CLINICAL HISTORY: 32 years old, female; Pain; Abdominal pain; Localized; Left; Additional info: Left flank pain TECHNIQUE: Axial computed tomography images of the abdomen and pelvis without intravenous contrast. All CT scans at this facility use one or more dose reduction techniques, viz.: automated exposure control; ma/kV adjustment per patient size (including targeted exams where dose is matched to indication; i.e. head); or iterative reconstruction technique. Coronal and sagittal reformatted images were created and reviewed. COMPARISON: No relevant prior studies available. FINDINGS: Limitations: Lack of intravenous contrast. Motion artifact - mild. Lung bases: No acute findings. ABDOMEN: Liver: Unremarkable. Gallbladder and bile ducts: No calcified stones. No ductal dilation. Pancreas: Unremarkable. No ductal dilation. Spleen: No splenomegaly. Adrenals: No mass. Kidneys and ureters: No renal calculi. Few faint punctate calculi vs artifact within kidneys. Probable 1.4 cm RIGHT renal cyst. No hydronephrosis. Stomach and bowel: Segmental areas of probable underdistention of colon. No definite mural thickening. No obstruction. PELVIS: Appendix: Normal caliber. No inflammation. Bladder: Unremarkable. No stones. Reproductive: 2.1 x 1.9 x 2.2 cm hypodense lesion within LEFT ovary. ABDOMEN and PELVIS: Intraperitoneal space: No significant fluid collection. No free air. Bones/joints: No acute fracture. Soft tissues: Tiny umbilical hernia containing fat. Vasculature: Unremarkable. No aneurysm. Lymph nodes: No pathologically enlarged lymph nodes. IMPRESSION: 1. No definite CT evidence of obstructing urolithiasis. 2. Probable LEFT ovarian cyst. Consider ultrasound. 3. Incidental/non-acute findings are described above.
[2017-11-08 23:00] VITALS: O2SAT 99
== END 2017-11-08 23:11 | disposition home or self-care (01) ==
LOC: C.ER 18:53
DX: N83.202 Unspecified ovarian cyst, left side (principal); I12.9 Hypertensive chronic kidney disease with stage 1 through stage 4 chronic kidney disease, or unspecified chronic kidney disease; E11.22 Type 2 diabetes mellitus with diabetic chronic kidney disease; F17.210 Nicotine dependence, cigarettes, uncomplicated; N18.9 Chronic kidney disease, unspecified
CPT/HCPCS: 74176; 80053; 81001; 84702; 84703; 85025; 85610; 85730; 86850; 86900; 96361; 96374; 99285; J1885; J7040

== ENCOUNTER 2017-12-08 16:23 | Emergency (ER) | payer MEDICAID ==
[2017-12-08 16:23] VITALS: BMI 34.1
[2017-12-08 16:33] VITALS: O2SAT 98
--- NOTE | 2017-12-08 17:31 | C.PDOC ---
History Of Present Illness Patient is a 32 y/o female who presents to the ED with complaints of intermittent vaginal bleeding with pain to the area and left-sided abdominal pain since August. Patient also notes new onset of cyst for the last 6 days. No other physical complaints at this time. Time Seen by Provider: 12/08/17 17:04 Chief Complaint (Nursing): Female Genitourinary History Per: Patient History/Exam Limitations: no limitations Onset/Duration Of Symptoms: Days (August), Intermittent Episodes Current Symptoms Are (Timing): Still Present Associated Symptoms: Urinary Symptoms (intermittent vaginal bleeding) Recent travel outside of the [place]: No Past Medical History Reviewed: Historical Data, Nursing Documentation, Vital Signs Vital Signs: Last Vital Signs Temp 98.7 F 12/08/17 16:30 Pulse 111 H 12/08/17 16:30 Resp 15 12/08/17 16:30 BP 164/93 H 12/08/17 16:30 Pulse Ox 98 12/08/17 18:17 - Medical History PMH: Anxiety (drug induced), Back Problems, Bipolar Disorder, Depression, Diabetes, Gastritis, Gastrointestinal Ulcer, Hiatal Hernia, HTN, Kidney Stones ( history), Pancreatitis, Chronic Kidney Disease (kidney stones) Denies: Hepatitis, HIV, Seizures, Sexually Transmitted Disease Surgical History: No Surg Hx, - [facility] Procedures GROUP PSYCHOTHERAPY (12/17/16) INDIV PSYCHOTHERAPY FOR SUBSTANCE ABUSE TREATMENT, SUPPORT (01/19/17) INDIV PSYCHOTHERAPY FOR SUBSTANCE ABUSE, COGNITIV BEHAVIORAL (12/17/16) INDIV PSYCHOTHERAPY FOR SUBSTANCE ABUSE, PSYCHOEDUCATION (12/17/16) INDIVID PSYCHOTHERAP NEC (06/23/14) INFLUENZA VACCINATION (07/23/14) INJECT/INFUSE NEC (07/29/13) NEBULIZER THERAPY (07/29/13) OTHER GROUP THERAPY (06/23/14) Family History: States: Unknown Family Hx - Social History Hx Tobacco Use: No Hx Alcohol Use: Yes Hx Substance Use: Yes - Immunization History Hx Tetanus Toxoid Vaccination: No Hx Influenza Vaccination: No Hx Pneumococcal Vaccination: No Review Of Systems Gastrointestinal: Positive for: Abdominal Pain (left-sided) Genitourinary: Positive for: Vaginal Bleeding (intermittent), Pelvic Pain Physical Exam - Physical Exam Appears: Non-toxic, No Acute Distress Skin: Normal Color, Warm, Dry Head: Atraumatic, Normacephalic Oral Mucosa: Moist Chest: Symmetrical Cardiovascular: Rhythm Regular, No Murmur Respiratory: Normal Breath Sounds, No Rales, No Rhonchi, No Wheezing Gastrointestinal/Abdominal: Soft, No Tenderness Pelvic: Normal Bimanual Exam, Other (sql tech Jeanne chaperoned; subcutaneous nodule in left labia majora, mobile, nonfluctuant, mild tenderness) Neurological/Psych: Oriented x3, Normal Speech, Normal Cognition ED Course And Treatment - Laboratory Results Result Diagrams: 12/08/17 18:27 O2 Sat by Pulse Oximetry: 98 Progress Note: BMP, HCG urine, urine culture, UA ordered. Toradol administered. Disposition - Disposition Disposition Time: 19:00 Condition: STABLE Forms: [email or web address] (Mexican) - Clinical Impression Clinical Impression: Back pain, Pelvic pain - Scribe Statement The provider has reviewed the documentation as recorded by the Scribe Millie Grider All medical record entries made by the Scribe were at my direction and personally dictated by me. I have reviewed the chart and agree that the record accurately reflects my personal performance of the history, physical exam, medical decision making, and the department course for this patient. I have also personally directed, reviewed, and agree with the discharge instructions and disposition. Physician Patient Turnover Patient Signed Over To: Mando Barrow Handoff Comments: fu labs, ct, dispo
[2017-12-08 18:40] LABS: HCG,QUALITATIVE URINE NEGATIVE (NEGATIVE)
[2017-12-08 18:42] LABS: MEAN CELL VOLUME 93.9 fL (81.0-99.0); MEAN CORPUSCULAR HEMOGLOBIN 32.4 pg (27.0-31.0); MEAN CORPUSCULAR HGB CONC 34.5 g/dL (33.0-37.0); MEAN PLATELET VOLUME 9.6 fL (7.2-11.7); RBC 4.01 Mil/uL (3.80-5.20); RED CELL DISTRIBUTION WIDTH 13.3 % (11.5-14.5); SQUAMOUS EPITHIAL 2 /hpf (0-5); URINE BACTERIA RARE (<OCC); URINE BILIRUBIN NEGATIVE (NEGATIVE); URINE BLOOD NEGATIVE (NEGATIVE); URINE CLARITY Clear (Clear); URINE COLOR Straw (YELLOW); URINE GLUCOSE (UA) NORMAL (Normal); URINE LEUKOCYTE ESTERASE NEG Leu/uL (Negative); URINE PROTEIN NEGATIVE (NEGATIVE); URINE UROBILINOGEN NORMAL mg/dL (0.2-1.0); WHITE BLOOD COUNT 11.9 K/uL (4.8-10.8)
[2017-12-08 19:00] LABS: BLOOD UREA NITROGEN 9 mg/dL (7-17); CALCIUM 9.1 mg/dl (8.6-10.4); GFR AFRICAN-AMERICAN > 60; GFR NON-AFRICAN AMERICAN > 60
[2017-12-08 19:45] VITALS: BP 155/93; PULSE 79; RESP 19; TEMP 98
== END 2017-12-08 20:31 | disposition left against medical advice (07) ==
LOC: C.ER 16:23
DX: R10.2 Pelvic and perineal pain (principal); M54.9 Dorsalgia, unspecified
CPT/HCPCS: 80048; 81001; 84703; 85027; 87086; 96374; 99285; J1885

== ENCOUNTER 2018-02-11 18:06 | Emergency (ER) | payer MEDICAID ==
[2018-02-11 18:06] VITALS: BMI 34.1
[2018-02-11 18:27] VITALS: TEMP 98.7
[2018-02-11] MEDS ORDERED: Sodium Chloride 0.9% 1,000 ML IV STA (18:44)
[2018-02-11 19:14] LABS: BASO # 0.1 K/uL (0.0-0.2); BASO % 0.7 % (0.0-2.0); EOS # 0.4 K/uL (0.0-0.7); HEMOGLOBIN 12.8 g/dL (11.0-16.0); LYMPH # 4.3 K/uL (1.0-4.3); LYMPH % 33.3 % (20.0-40.0); MEAN CELL VOLUME 90.7 fL (81.0-99.0); MEAN CORPUSCULAR HEMOGLOBIN 30.6 pg (27.0-31.0); MEAN CORPUSCULAR HGB CONC 33.8 g/dL (33.0-37.0); MEAN PLATELET VOLUME 9.6 fL (7.2-11.7); MONO % 7.9 % (0.0-10.0); NEUT # 7.1 K/uL (1.8-7.0); NEUT % 55.1 % (50.0-75.0); RBC 4.17 Mil/uL (3.80-5.20); RED CELL DISTRIBUTION WIDTH 13.2 % (11.5-14.5); WHITE BLOOD COUNT 12.9 K/uL (4.8-10.8)
[2018-02-11 19:18] LABS: HCG,QUALITATIVE URINE NEGATIVE (NEGATIVE)
[2018-02-11] MEDS ORDERED: Sodium Chloride 0.9% 1,000 ML ONE (19:18)
[2018-02-11 19:20] LABS: SQUAMOUS EPITHIAL 15 /hpf (0-5); URINE BACTERIA RARE (<OCC); URINE BILIRUBIN NEGATIVE (NEGATIVE); URINE BLOOD NEGATIVE (NEGATIVE); URINE CLARITY Hazy (Clear); URINE COLOR Yellow (YELLOW); URINE GLUCOSE (UA) 1+ mg/dL (Normal); URINE LEUKOCYTE ESTERASE TRACE Leu/uL (Negative); URINE PROTEIN NEGATIVE (NEGATIVE); URINE UROBILINOGEN NORMAL mg/dL (0.2-1.0)
[2018-02-11 19:36] LABS: ALB/GLOB RATIO 1.5 (1.0-2.1); ALBUMIN 4.4 g/dL (3.5-5.0); ALT/SGPT 48 U/L (9-52); AST/SGOT 24 U/L (14-36); BLOOD UREA NITROGEN 10 mg/dL (7-17); CALCIUM 9.4 mg/dl (8.6-10.4); GFR AFRICAN-AMERICAN > 60; GFR NON-AFRICAN AMERICAN > 60
[2018-02-11 19:43] LABS: BARBITURATES, UR NEGATIVE (NEGATIVE); BENZODIAZEPINES, UR NEGATIVE (NEGATIVE); OPIATES, UR NEGATIVE (NEGATIVE)
[2018-02-11 19:47] LABS: PHENCYCLIDINE, UR POSITIVE (NEGATIVE)
[2018-02-11] MEDS ORDERED: Iodixanol 320 MG/ML 100 ML BOTTLE IV ONE (19:54)
--- NOTE | 2018-02-11 20:11 | C.PDOC ---
History Of Present Illness 32 year old female patient presents to the ER with c/o lump on the left side of neck. Patient reports the lump appeared 2 days ago. Patient denies fever, chills , throat pain and trauma. Time Seen by Provider: 02/11/18 18:33 Chief Complaint (Nursing): Abnormal Skin Integrity History Per: Patient History/Exam Limitations: no limitations Onset/Duration Of Symptoms: Days (x2 ) Current Symptoms Are (Timing): Still Present Location Of Injury: Left: Neck Quality Of Symptoms: Swollen Past Medical History Reviewed: Historical Data, Nursing Documentation, Vital Signs Vital Signs: Last Vital Signs Temp 98.7 F 02/11/18 18:25 Pulse 86 02/11/18 20:27 Resp 18 02/11/18 20:27 BP 124/77 02/11/18 20:27 Pulse Ox 98 02/11/18 21:09 - Medical History PMH: Anxiety (drug induced), Back Problems, Bipolar Disorder, Depression, Diabetes, Gastritis, Gastrointestinal Ulcer, Hiatal Hernia, HTN, Kidney Stones ( history), Pancreatitis, Chronic Kidney Disease (kidney stones) Surgical History: - [facility] Procedures GROUP PSYCHOTHERAPY (12/17/16) INDIV PSYCHOTHERAPY FOR SUBSTANCE ABUSE TREATMENT, SUPPORT (01/19/17) INDIV PSYCHOTHERAPY FOR SUBSTANCE ABUSE, COGNITIV BEHAVIORAL (12/17/16) INDIV PSYCHOTHERAPY FOR SUBSTANCE ABUSE, PSYCHOEDUCATION (12/17/16) INDIVID PSYCHOTHERAP NEC (06/23/14) INFLUENZA VACCINATION (07/23/14) INJECT/INFUSE NEC (07/29/13) NEBULIZER THERAPY (07/29/13) OTHER GROUP THERAPY (06/23/14) Family History: States: Unknown Family Hx - Social History Hx Tobacco Use: No Hx Alcohol Use: Yes Hx Substance Use: Yes - Immunization History Hx Tetanus Toxoid Vaccination: No Hx Influenza Vaccination: No Hx Pneumococcal Vaccination: No Review Of Systems Except As Marked, All Systems Reviewed And Found Negative. Constitutional: Negative for: Fever, Chills, Other (trauma to neck) ENT: Positive for: Other (lump on left side of neck). Negative for: Throat Pain Physical Exam - Physical Exam Appears: Well, Non-toxic, No Acute Distress Skin: Normal Color, Warm, Dry Head: Atraumatic, Normacephalic Eye(s): bilateral: Normal Inspection Ear(s): Bilateral: Normal Throat: Normal Neck: Normal ROM, Trachea Midline, No Midline Cervical Tenderness, No Paracervical Tenderness, Other (palpable and tenderness on lump on left side of neck) Cardiovascular: Rhythm Regular Respiratory: Normal Breath Sounds, No Accessory Muscle Use Extremity: Normal ROM (x4) Neurological/Psych: Oriented x3, Normal Speech, Normal Motor, Normal Sensation, Normal Reflexes Gait: Steady ED Course And Treatment - Laboratory Results Result Diagrams: 02/11/18 19:09 02/11/18 19:09 O2 Sat by Pulse Oximetry: 98 (RA) Pulse Ox Interpretation: Normal - CT Scan/US soft tissue neck CT Other Rad Studies (CT/US): Read By Radiologist, Radiology Report Reviewed CT/US Interpretation: EXAM: CT Neck With Intravenous Contrast. CLINICAL HISTORY: 32 years old, female; Signs and symptoms; Mass, lump, or swelling in neck; Additional info: Left. sided swelling. TECHNIQUE: Axial computed tomography images of the neck with intravenous contrast. All CT scans at this. facility use at least one of these dose optimization techniques: automated exposure control; mA. and/or kV adjustment per patient size (includes targeted exams where dose is matched to clinical. indication); or iterative reconstruction. Coronal and sagittal reformatted images were created and reviewed. CONTRAST: 100 mL of visipaque 320 administered intravenously. COMPARISON: No relevant prior studies available. FINDINGS: Oropharynx: Unremarkable. No significant tonsillar enlargement. No peritonsillar abscess. Hypopharynx: Unremarkable. Larynx: Unremarkable. Normal epiglottis. Trachea: Unremarkable. Retropharyngeal space: Unremarkable. Submandibular/parotid glands: The parotid and submandibular salivary glands are normal. Thyroid: The visualized thyroid and the thoracic inlet appear normal. Bones/joints: No acute fracture. Soft tissues: Unremarkable. Vasculature: No acute findings. Lymph nodes: There are multiple slightly prominent nonspecific cervical nodes. Corresponding to. the left lateral neck adjacent to the left sternocleidomastoid, slightly prominent enhancing nodes with. adjacent inflammation largest 11 mm. This likely represents a focal area of lymphadenitis possibly. reactive. Sinuses: Sinuses are clear without air- fluid levels, or mucoperiosteal thickening. Lung apices: Small 3 mm nodule left lung apex. IMPRESSION: Corresponding to clinical lump, a reactive node adjacent inflammation suggesting lymphadenitis of. uncertain etiology and clinical significance. Additional slightly prominent cervical nodes are seen which are nonspecific, could be associated with. URI, or reactive changes. If symptoms do not resolve with time, consider further ENT followup as outpatient. For lung nodules 4 mm or smaller in size, if the patient is considered high risk for lung cancer or. metastatic disease, follow-up CT in 12 months is recommended. If the patient is considered low risk. and under age 35, no follow -up is needed. Thank you for allowing us to participate in the care of your patient. Dictated and Authenticated by: Arpit Peña MD. 02/11/2018 8:39 PM Eastern Time ([place] & [place]) Progress Note: Impression: lump on left side of neck. Plans: -- CT neck. -- blood work. -- CXR. -- IV fluids. -- blood cx. -- UA. Reassess: Patient is resting comfortably. NAD. Patient refused IV Rocephin, took Keflex po instead and is stable to be d/c home. Patient is advised to f/u with PCP and ENT in 1- 2 days. Disposition - Disposition Referrals: Jadiel Orellana MD [Staff Provider] - Disposition: HOME/ ROUTINE Disposition Time: 21:04 Condition: STABLE Additional Instructions: Follow up with PMD and ENT specialist within 1-2 days. Return to ED if feel worse. Prescriptions: Cephalexin [Keflex] 500 mg PO Q6 #28 cap Instructions: Cephalexin Forms: [facility] (Georgian) - Clinical Impression Clinical Impression: Lymphadenitis - PA / CELL COVERER / Resident Statement / has reviewed & agrees with the documentation as recorded. - Scribe Statement The provider has reviewed the documentation as recorded by the David Arciniega Do All medical record entries made by the David were at my direction and personally dictated by me. I have reviewed the chart and agree that the record accurately reflects my personal performance of the history, physical exam, medical decision making, and the department course for this patient. I have also personally directed, reviewed, and agree with the discharge instructions and disposition.
[2018-02-11 20:28] VITALS: BP 124/77; PULSE 86; RESP 18
[2018-02-11 20:51] VITALS: O2SAT 98
--- NOTE | 2018-02-12 08:40 | RAD ---
Date of service: 02/11/2018 HISTORY: left neck swelling COMPARISON: Frontal chest 05/16/2017. TECHNIQUE: Chest PA and lateral FINDINGS: LUNGS: No active pulmonary disease. PLEURA: No significant pleural effusion identified. No pneumothorax apparent. CARDIOVASCULAR: Normal. OSSEOUS STRUCTURES: No significant abnormalities. VISUALIZED UPPER ABDOMEN: Normal. OTHER FINDINGS: None. IMPRESSION: No interval acute cardiopulmonary disease appreciated.
--- NOTE | 2018-02-12 11:30 | CT ---
Date of service: 02/11/2018 PROCEDURE: CT NECK WITH CONTRAST HISTORY: left sided swelling COMPARISON: None available. TECHNIQUE: CT of the neck with intravenous contrast. Coronal and sagittal reformats generated. Intravenous contrast dose: Visipaque 320, 100 cc Radiation dose: DLP 497.41 mGy-cm This CT exam was performed using one or more of the following dose reduction techniques: Automated exposure control, adjustment of the mA and/or kV according to patient size, and/or use of iterative reconstruction technique. FINDINGS: NASOPHARYNX: Unremarkable. SUPRAHYOID NECK: The oral cavity some obscured by beam hardening from dental hardware at the anterior to mid oral cavity level. Unremarkable oropharynx, parapharyngeal space and retropharyngeal space. INFRAHYOID NECK: Unremarkable larynx, hypopharynx, and supraglottic space. Vocal cords intact. MASS: None. GLANDS: Parotid and submandibular glands unremarkable. Normal size thyroid gland, without nodule. LYMPH NODES: Numerous shotty lymph nodes seen are predominantly in the infrahyoid neck along the jugular digastric chain with some separate including overlying the left sternocleidomastoid muscle under 1 cm size, best seen in image 43 series 2. This may correspond to the area of limited left neck swelling but further clinical correlation is advised. Consider potential limited cyst infectious or inflammatory delete process though the etiology is not clear based on this CT examination. No gross lymphadenopathy appreciable. CERVICAL SPINE: No fracture or spondylolisthesis identified. VASCULAR STRUCTURES: Unremarkable. OTHER FINDINGS: Incidental 3 mm noncalcified nodule left pulmonary apex. IMPRESSION: 1. No suspicious soft tissue mass in the supra or infrahyoid neck or abscess. Note is made of numerous reactive lymph nodes seen greater at the infrahyoid and suprahyoid neck as discussed above. Small lymph nodes super for is left sternocleidomastoid muscle are identified potentially corresponding to the neck swelling area of interest. Consider lymphadenitis of indeterminate etiology. 2. Incidental 3 mm nodule left pulmonary apex. Consider follow-up CT in 12 months if there is high risk for lung cancer. Concordant preliminary report from [facility], 02/11/2018.
== END 2018-02-11 21:21 | disposition home or self-care (01) ==
LOC: C.ER 18:06
DX: I88.9 Nonspecific lymphadenitis, unspecified (principal); I10 Essential (primary) hypertension; E11.9 Type 2 diabetes mellitus without complications; F17.210 Nicotine dependence, cigarettes, uncomplicated
CPT/HCPCS: 70491; 71046; 80053; 80324; 80345; 80346; 80349; 80353; 80358; 80361; 81001; 83992; 84703; 85025; 87040; 96360; 99284; J7030; Q9967

== ENCOUNTER 2018-04-28 22:57 | Emergency (ER) | payer MEDICAID ==
[2018-04-28 22:57] VITALS: BMI 34.1
[2018-04-28 23:08] VITALS: TEMP 99
[2018-04-28 23:40] VITALS: BP 156/95; PULSE 91; RESP 18; O2SAT 98
--- NOTE | 2018-04-29 04:21 | C.PDOC ---
Chief Complaint (Nursing): ENT Problem Past Medical History Vital Signs: Last Vital Signs Temp 99 F 04/28/18 23:01 Pulse 91 H 04/28/18 23:39 Resp 18 04/28/18 23:39 BP 156/95 H 04/28/18 23:39 Pulse Ox 98 04/28/18 23:39 - Medical History PMH: Anxiety (drug induced), Back Problems, Bipolar Disorder, Depression, Diabetes, Gastritis, Gastrointestinal Ulcer, Hiatal Hernia, HTN, Kidney Stones (history), Pancreatitis, Chronic Kidney Disease (kidney stones) Denies: Hepatitis, HIV, Seizures, Sexually Transmitted Disease Surgical History: - [facility] Procedures GROUP PSYCHOTHERAPY (12/17/16) INDIV PSYCHOTHERAPY FOR SUBSTANCE ABUSE TREATMENT, SUPPORT (01/19/17) INDIV PSYCHOTHERAPY FOR SUBSTANCE ABUSE, COGNITIV BEHAVIORAL (12/17/16) INDIV PSYCHOTHERAPY FOR SUBSTANCE ABUSE, PSYCHOEDUCATION (12/17/16) INDIVID PSYCHOTHERAP NEC (06/23/14) INFLUENZA VACCINATION (07/23/14) INJECT/INFUSE NEC (07/29/13) NEBULIZER THERAPY (07/29/13) OTHER GROUP THERAPY (06/23/14) Family History: States: Unknown Family Hx - Social History Hx Tobacco Use: No Hx Alcohol Use: Yes Hx Substance Use: No - Immunization History Hx Tetanus Toxoid Vaccination: No Hx Influenza Vaccination: No Hx Pneumococcal Vaccination: No ED Course And Treatment O2 Sat by Pulse Oximetry: 98 Disposition - Disposition Referrals: Art Spencer, [Non-Staff] - Disposition: HOME/ ROUTINE Additional Instructions: SARAH BRIGHT, thank you for letting us take care of you today. Your provider was Narayan Summers DO and you were treated for THROAT PAIN/SWOLLEN. The emergency medical care you received today was directed at your acute symptoms. If you were prescribed any medication, please fill it and take as directed. It may take several days for your symptoms to resolve. Return to the Emergency Department if your symptoms worsen, do not improve, or if you have any other problems. Please contact your doctor or call one of the physicians/clinics you have been referred to that are listed on the Patient Visit Information form that is included in your discharge packet. Bring any paperwork you were given at discharge with you along with any medications you are taking to your follow up visit. Our treatment cannot replace ongoing medical care by a primary care provider outside of the emergency department. Thank you for allowing the [facility] team to be part of your care today. Follow up with your primary care doctor in 2-3 days for re-evaluation and further management. Prescriptions: Azithromycin [Zithromax] 250 mg PO DAILY #6 tab Ibuprofen [Motrin] 600 mg PO Q6 PRN #20 tab PRN Reason: Pain, Moderate (4-7) Instructions: Sore Throat, Adult (DC) Forms: [employer] (Panamanian)
--- NOTE | 2018-04-29 04:22 | C.PDOC ---
History Of Present Illness 33 year old female presents to the ER with a complaint of a sore throat for the past several days. Patient states she is able to tolerate liquids. Denies fever, nausea, or vomiting. Chief Complaint (Nursing): ENT Problem History Per: Patient History/Exam Limitations: None Onset/Duration Of Symptoms: Days Current Symptoms Are (Timing): Still Present Quality (Mouth/Throat): Tenderness Symptoms Have Been: Continuous Past Medical History Reviewed: Historical Data, Nursing Documentation, Vital Signs Vital Signs: Last Vital Signs Temp 99 F 04/28/18 23:01 Pulse 91 H 04/28/18 23:39 Resp 18 04/28/18 23:39 BP 156/95 H 04/28/18 23:39 Pulse Ox 98 04/28/18 23:39 - Medical History PMH: Anxiety (drug induced), Back Problems, Bipolar Disorder, Depression, Diabetes, Gastritis, Gastrointestinal Ulcer, Hiatal Hernia, HTN, Kidney Stones (history), Pancreatitis, Chronic Kidney Disease (kidney stones) Denies: Hepatitis, HIV, Seizures, Sexually Transmitted Disease Surgical History: - [facility] Procedures GROUP PSYCHOTHERAPY (12/17/16) INDIV PSYCHOTHERAPY FOR SUBSTANCE ABUSE TREATMENT, SUPPORT (01/19/17) INDIV PSYCHOTHERAPY FOR SUBSTANCE ABUSE, COGNITIV BEHAVIORAL (12/17/16) INDIV PSYCHOTHERAPY FOR SUBSTANCE ABUSE, PSYCHOEDUCATION (12/17/16) INDIVID PSYCHOTHERAP NEC (06/23/14) INFLUENZA VACCINATION (07/23/14) INJECT/INFUSE NEC (07/29/13) NEBULIZER THERAPY (07/29/13) OTHER GROUP THERAPY (06/23/14) Family History: States: Unknown Family Hx - Social History Hx Tobacco Use: No Hx Alcohol Use: Yes Hx Substance Use: No - Immunization History Hx Tetanus Toxoid Vaccination: No Hx Influenza Vaccination: No Hx Pneumococcal Vaccination: No Review Of Systems Constitutional: Negative for: Fever, Chills ENT: Positive for: Throat Pain Cardiovascular: Negative for: Chest Pain, Palpitations Respiratory: Negative for: Cough, Shortness of Breath Gastrointestinal: Negative for: Nausea, Vomiting Physical Exam - Physical Exam Appears: Non-toxic Skin: Normal Color, Warm, Dry Head: Atraumatic, Normacephalic Eye(s): bilateral: Normal Inspection Oral Mucosa: Moist Throat: Other (Exudates to bilateral tonsils) Neck: Normal, Supple Lymphatic: Adenopathy (Right cervical) Chest: Symmetrical, No Tenderness Cardiovascular: Rhythm Regular Respiratory: Normal Breath Sounds, No Rales, No Rhonchi, No Wheezing Gastrointestinal/Abdominal: Soft, No Tenderness Neurological/Psych: Oriented x3, Normal Speech ED Course And Treatment O2 Sat by Pulse Oximetry: 98 (Room air) Pulse Ox Interpretation: Normal Progress Note: Zithromax and motrin administered. Disposition - [facility] - Disposition: HOME/ ROUTINE Disposition Time: 23:20 Condition: GOOD Additional Instructions: SARAH BRIGHT, thank you for letting us take care of you today. Your provider was Narayan Summers DO and you were treated for THROAT PAIN/SWOLLEN. The emergency medical care you received today was directed at your acute symptoms. If you were prescribed any medication, please fill it and take as directed. It may take several days for your symptoms to resolve. Return to the Emergency Department if your symptoms worsen, do not improve, or if you have any other problems. Please contact your doctor or call one of the physicians/clinics you have been referred to that are listed on the Patient Visit Information form that is included in your discharge packet. Bring any paperwork you were given at discharge with you along with any medications you are taking to your follow up visit. Our treatment cannot replace ongoing medical care by a primary care provider outside of the emergency department. Thank you for allowing the [facility] team to be part of your care today. Follow up with your primary care doctor in 2-3 days for re-evaluation and fur ther management. Prescriptions: Azithromycin [Zithromax] 250 mg PO DAILY #6 tab Ibuprofen [Motrin] 600 mg PO Q6 PRN #20 tab PRN Reason: Pain, Moderate (4-7) Instructions: Sore Throat, Adult (DC) Forms: [employer] (Serbian) - Clinical Impression Clinical Impression: Acute bacterial tonsillitis - Scribe Statement The provider has reviewed the documentation as recorded by the Scribarminda Roberts All medical record entries made by the Scribe were at my direction and personally dictated by me. I have reviewed the chart and agree that the record accurately reflects my personal performance of the history, physical exam, medical decision making, and the department course for this patient. I have also personally directed, reviewed, and agree with the discharge instructions and disposition.
== END 2018-04-29 00:10 | disposition home or self-care (01) ==
LOC: C.ER 22:57
DX: J03.80 Acute tonsillitis due to other specified organisms (principal); B96.89 Other specified bacterial agents as the cause of diseases classified elsewhere; F17.210 Nicotine dependence, cigarettes, uncomplicated

== ENCOUNTER 2018-07-15 16:40 | Emergency (ER) | payer MEDICAID ==
[2018-07-15 16:41] VITALS: BMI 34.1
[2018-07-15 16:55] VITALS: BP 178/98; PULSE 96; RESP 20; TEMP 98.2; O2SAT 97
== END 2018-07-15 17:52 | disposition left against medical advice (07) ==
LOC: C.ER 16:40
DX: Z02.89 Encounter for other administrative examinations (principal); F19.10 Other psychoactive substance abuse, uncomplicated
CPT/HCPCS: 82948; LWBS0